=== PATIENT | male | born 1945 | race Caucasian/White ===

== ENCOUNTER 2022-05-22 09:43 | Outpatient (RCR) | payer MEDICARE, SELFPAY | END 2022-11-07 23:59 | disposition home or self-care (01) | PROVIDERS: PCP Family Medicine; Visit Provider Orthopaedic Surgery | DX: Z96.619 Presence of unspecified artificial shoulder joint (principal); Z51.89 Encounter for other specified aftercare | CPT/HCPCS: 97110; 97161 ==

== ENCOUNTER 2023-04-09 22:59 | Emergency (ER) | payer MEDICARE, SELFPAY ==
[2023-04-09] MEDS: lidocaine HCL 2 % JELLY (TOP) STERILE 6 ML UR (23:03)
--- NOTE | 2023-04-09 23:06 | ED.GENADULT ---
HPI - General Adult General Date Seen: 04/09/23 Chief complaint: Urogenital Problems, Male Stated complaint: unable to urinate Time Seen by Provider: 04/09/23 23:05 History of Present Illness HPI narrative: 77-year-old gentleman who is 3 days status post prostate ablation surgery done by Dr. Alejandro at [facility] who presents to the ER today from his home with acute urinary retention and bladder pain. He had placement of a Campbell catheter during his surgery and awoke from anesthesia with the catheter in place. The catheter was draining normally but some bloody urine output for the 1st 3 days. This morning he had his clinic follow-up with a urologist. Initially they irrigated his bladder. He says they ran 18 L of saline through his bladder in order to get the hematuria to clear. (it sounds like he had a 3 way catheter in and they were able to do CBI in the clinic). Subsequently they pulled his catheter. He was able to void spontaneously empty his bladder once in the clinic. That was around noon. Since then he has not been able to urinate. He has had progressively worsening suprapubic pain and fullness and bladder pain. He now has a desperate urge to urinate. No other symptoms. No flank pain. No vomiting. No fever. No trouble bowels. He does not take any blood thinners. He has lot of pain from his over stented bladder but no other symptoms. No lightheadedness. No fever. No flank pain. Related Data Home Medications Medication Instructions Recorded Confirmed albuterol sulfate 90 mcg/actuation 2 puff inhalation Q6H PRN 03/26/22 04/09/23 aerosol inhaler shortness of breath or wheezing ascorbic acid (vitamin C) 500 mg 500 mg PO DAILY 03/26/22 04/09/23 tablet,extended release (C Complex) aspirin 81 mg tablet,delayed 81 mg PO DAILY 03/26/22 04/09/23 release atenolol 50 mg tablet 50 mg PO DAILY 03/26/22 04/09/23 atorvastatin 40 mg tablet 40 mg PO DAILY 03/26/22 04/09/23 calcium carbonate 200 mg calcium 200 mg PO TID 03/26/22 03/25/23 (500 mg) chewable tablet (Tums) celecoxib 100 mg capsule 100 mg PO DAILY 03/26/22 04/09/23 finasteride 5 mg tablet 5 mg PO DAILY 03/26/22 04/09/23 furosemide 20 mg tablet 20 mg PO QAM 03/26/22 04/09/23 melatonin 10 mg tablet 10 mg PO QHS 03/26/22 04/09/23 montelukast 10 mg tablet 10 mg PO QHS 03/26/22 04/09/23 jfegioln-sso-raskn acid 0.4 1 tab PO DAILY 03/26/22 04/09/23 mg-lycopene 300 mcg-lutein 250 mcg tablet (Centrum Silver) omega-3 fatty acids-fish oil 684 1 cap PO DAILY 03/26/22 04/09/23 mg-1,200 mg capsule,delayed release (One-Per-Day [place]-3) omeprazole 40 mg capsule,delayed 40 mg PO BID 03/26/22 04/09/23 release pramipexole 0.5 mg tablet 0.5 - 1 mg PO QHS PRN 03/26/22 04/09/23 pregabalin 150 mg capsule 150 - 300 mg PO QHS 03/26/22 04/09/23 tamsulosin 0.4 mg capsule 0.4 mg PO DAILY 03/26/22 04/09/23 doxazosin 4 mg tablet 4 mg PO DAILY 04/09/23 04/09/23 folic acid 400 mcg tablet 400 mcg PO DAILY 04/09/23 04/09/23 Previous Rx's Medication Instructions Recorded cephalexin 500 mg capsule 500 mg PO BID #14 caps 04/10/23 Allergies Allergy/AdvReac Type Severity Reaction Status Date / Time Sulfa (Sulfonamide Allergy Mild Verified 03/25/23 09:26 Antibiotics) sulfamethoxazole Allergy Mild Nausea Verified 03/25/23 09:26 [From ] trimethoprim [From ] Allergy Mild Nausea Verified 03/25/23 09:26 anti-inflammatories AdvReac upsets Uncoded 03/25/23 09:26 stomach PFSH PFSH Medical History (Updated 04/10/23 @ 01:00 by Jim Mike MD) Right shoulder pain ?M25.511 - Pain in right shoulder (ICD-10) Spinal stenosis ?M48.00 - Spinal stenosis, site unspecified (ICD-10) 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 Alert. Conversant. Arrives by EMS. Uncomfortable but polite. Overall, nontoxic. HENT: Head: Atraumatic. Nose: Nose normal. Mouth/Throat: Oral mucosa is clear and moist. no trismus. Pharynx normal. Tonsils symmetric. No tonsillar enlargement, erythema, or exudate. Eyes: Conjunctivae normal. EOM normal. Pupils equal, round, and reactive to light. No scleral icterus. Neck: Normal range of motion. Neck supple. No tracheal deviation present. Cardiovascular: Normal rate, regular rhythm. No gallop. No friction rub. Pulmonary/Chest: Effort normal. No stridor. No respiratory distress. Abdominal: Soft. Bowel sounds normal. No distension. No mass. Lower abdominal and suprapubic tenderness. No CVA tenderness. No rebound. No guarding. : Normal external the until yeah. After nurses placed a [address] irrigating catheter he had output of several 100 mL of frankly bloody urine and a few small clots. He had tremendous relief of his pain after decompression of his bladder. Musculoskeletal: RUE: Normal range of motion. No tenderness. No deformity LUE: Normal range of motion. No tenderness. No deformity RLE: Normal range of motion. No edema. No tenderness. No deformity LLE: Normal range of motion. No edema. No tenderness. No deformity Neurological: Alert and oriented to person, place, and time. Normal strength. CN II-VII intact. No sensory deficit. GCS eye subscore is 4. GCS verbal subscore is 5. GCS motor subscore is 6. Normal coordination Skin: Skin is warm and dry. No rash noted. No pallor. Normal capillary refill. Psychiatric: Normal mood. Normal affect. Const: Vital Signs, click to edit/add: Vital Signs - 24 hr 04/09/23 23:09 04/10/23 01:20 Temperature 96.5 F L 97.2 F L Pulse Rate [Pulse Oximeter] 65 58 L Respiratory Rate 18 18 Blood Pressure [Ri ght Upper Arm] 181/83 H 147/56 H Pulse Oximetry 96 98 Oxygen Delivery Me thod Room Air Room Air Course Course ED Course: Recheck-sleeping. Catheter draining nicely. He is receiving continuous bladder irrigation with saline. Ongoing up put a very light colored minimally pink urine. Will ask the nurses to discontinue irrigation and will monitor to see if urine becomes more bloody or any clots developed. Vital Signs Vital signs: Initial Vital Signs Temperature 96.5 F L 04/09/23 23:09 Temperature Source Temporal Artery Scan 04/09/23 23:09 Pulse Rate 65 04/09/23 23:09 Respiratory Rate 18 04/09/23 23:09 Blood Pressure 181/83 H 04/09/23 23:09 Blood Pressure Mean 115 H 04/09/23 23:09 Blood Pressure Position Supine 04/09/23 23:09 Pulse Oximetry 96 04/09/23 23:09 Oxygen Delivery Method Room Air 04/09/23 23:09 Vital Signs Temperature 96.5 F L 04/09/23 23:09 Pulse Rate 65 04/09/23 23:09 Respiratory Rate 18 04/09/23 23:09 Blood Pressure 181/83 H 04/09/23 23:09 Pulse Oximetry 96 04/09/23 23:09 Oxygen Delivery Method Room Air 04/09/23 23:09 Temperature 97.2 F L 04/10/23 01:20 Pulse Rate 58 L 04/10/23 01:20 Respiratory Rate 18 04/10/23 01:20 Blood Pressure 147/56 H 04/10/23 01:20 Pulse Oximetry 98 04/10/23 01:20 Oxygen Delivery Method Room Air 04/10/23 01:20 Medications Administered Medications: Discontinued Medications Generic Name Dose Route Start Last Admin Trade Name Freq PRN Reason Stop Dose Admin Cephalexin HCl 500 mg 04/10/23 00:58 04/10/23 01:42 Cephalexin 500 Mg Capsule PO 04/10/23 00:59 500 mg ONCE ONE Administration Lidocaine HCl 6 ml 04/10/23 01:41 04/09/23 23:03 Lidocaine Hcl 2 % Jelly (Top) Sterile UR 6 ml ONCE PRN Administration Medical Decision Making MDM Narrative Medical decision making narrative: Very pleasant 77-year-old gentleman who is 3 days status post prostate procedure done by Dr. Anmol Wood, Urology, throughout with [facility]. He went home from the hospital 3 days ago with a Campbell catheter in place. He had that catheter removed in in the urology clinic this morning. He does report that they did have to irrigate his bladder to get some blood wash out, before they could pull it. He has not been able to have spontaneously void since he was in the clinic and presents from his home, by EMS with tremendous bladder pain. Symptoms related to urinary retention. We placed a triple-lumen catheter here in the ER. We did get large volume of urine out of his bladder with resolution of his pain. Initial urine output was frankly dark maroon and bloody with a few small clots. Blood cleared with irrigation. He is not having any symptoms of blood loss such as dyspnea, weakness, lightheadedness. He is not anticoagulated. Urinalysis was sent by nurses when they placed the catheter. It does show hematuria and pyuria. Unclear if the pyuria is related to his healing prostate surgery or possibly could represent UTI. Will cover him with antibiotics while we await urine culture-1st dose of cephalexin administered here in the ER. Lab Data Labs: Lab Results 04/09/23 Range/Units 23:32 Urine Color Brown A (Yellow) Urine Appearance Cloudy A (Clear) Urine pH 5.5 (5.0-8.5) Ur Specific [place] 1.020 (1.000-1.030) Urine Protein 3+ A (Negative) Urine Glucose (UA) Negative (Negative) Urine Ketones Trace A (Negative) Urine Blood 3+ A (Negative) Urine Nitrite Negative (Negative) Urine Bilirubin 2+ A (Negative) Urine Urobilinogen 1.0 (0.2-1.0) Ur Leukocyte Esterase Trace A (Negative) Urine RBC >100 A (0-2) Urine WBC >100 A (0-5) Urine WBC Clumps Many A (None) Ur Squamous Epith Cells Moderate A (None-Few) Uric Acid Crystals Moderate A (None) Amorphous Sediment Many A (None) Urine Bacteria Many A (None) RBC Casts Many A (None) WBC Casts Many A (None) Discharge Plan Discharge Clinical Impression: Urinary tract infection, Acute urinary retention Patient Disposition: Home, Self-Care Additional Instructions: Please come back to the ER or call your urologist right away if you have any problems especially if your Campbell catheter becomes plugged, or if you have returning pain in your bladder, abdomen, or in your kidneys. Please follow-up with your urologist within 1-2 days for a recheck. Call his office this morning to arrange an ER follow-up appointment. Your urine sample shows possible signs of an infection. We are going to start you on antibiotic. You got your 1st dose here tonight. Please fill the prescription at your pharmacy today and continue the antibiotic for 7 days or until your urologist tells you to stop taking the medication. Prescriptions: New cephalexin 500 mg capsule 500 mg PO BID Qty: 14 0RF No Action folic acid 400 mcg tablet 400 mcg PO DAILY doxazosin 4 mg tablet 4 mg PO DAILY albuterol sulfate 90 mcg/actuation HFA aerosol inhaler 2 puff INHALATION Q6H PRN (Reason: shortness of breath or wheezing) aspirin 81 mg tablet,delayed release (DR/EC) 81 mg PO DAILY Patient Comments: 1 tablet once a day atenolol 50 mg tablet 50 mg PO DAILY atorvastatin 40 mg tablet 40 mg PO DAILY celecoxib 100 mg capsule 100 mg PO DAILY ascorbic acid (vitamin C) [C Complex] 500 mg tablet extended release 500 mg PO DAILY calcium carbonate [Tums] 200 mg calcium (500 mg) tablet,chewable 200 mg PO TID finasteride 5 mg tablet 5 mg PO DAILY furosemide 20 mg tablet 20 mg PO QAM melatonin 10 mg tablet 10 mg PO QHS montelukast 10 mg tablet 10 mg PO QHS Centrum Silver 0.4 mg-300 mcg- 250 mcg tablet 1 tab PO DAILY One-Per-Day [place]-3 684-1,200 mg capsule,delayed release(DR/EC) 1 cap PO DAILY omeprazole 40 mg capsule,delayed release(DR/EC) 40 mg PO BID pramipexole 0.5 mg tablet 0.5 - 1 mg PO QHS PRN pregabalin 150 mg capsule 150 - 300 mg PO QHS tamsulosin 0.4 mg capsule 0.4 mg PO DAILY Follow Up/Referrals: Srinivasan Loyd MD [Primary Care Provider] - Stand Alone Forms: [facility] Info Instructions
[2023-04-09 23:09] VITALS: BP 181/83; PULSE 65; RESP 18; TEMP 35.8; O2SAT 96; BMI 29.5
--- NOTE | 2023-04-09 23:48 | ED.NURSE ---
Patient had CBI catheter placed without difficulty. 800 cc brown urine drained. Patient noted relief of symptoms. Urine collected and sent to lab. No clots present.
[2023-04-09 23:55] LABS: Appearance Urine Cloudy (Clear); Bilirubin Urine 2+ (Negative); Blood Urine 3+ (Negative); Color Urine Brown (Yellow); Glucose Urine Negative (Negative); Ketones Urine Trace (Negative); Leukocyte Esterase Urine Trace (Negative); Nitrite Urine Negative (Negative); Protein Urine 3+ (Negative); pH Urine 5.5 (5.0-8.5)
[2023-04-10 00:05] LABS: Amorphous Sediment Urine Many; Bacteria Urine Many; RBC Urine >100 (0-2); Squamous Epithelial Cell Urine Moderate (None-Few); WBC Clumps Urine Many; WBC Urine >100 (0-5)
[2023-04-10 00:06] LABS: Red Blood Cell Casts Urine Many; Uric Acid Crystals Urine Moderate; White Blood Cell Casts Urine Many
[2023-04-10 01:20] VITALS: BP 147/56; PULSE 58; RESP 18; TEMP 36.2; O2SAT 98
[2023-04-10] MEDS: cephALEXin 500 MG CAPSULE PO (01:42)
--- NOTE | 2023-04-10 01:43 | PC.NURSE ---
education provided to patient about home catheter care. patient stated understanding to proper care when emptying catheter. also stated understanding to how to switch between leg bag and bed bag.
--- NOTE | 2023-04-10 01:57 | PC.NURSE ---
DC instructions gone over with patient and he has no further questions. Catheter bag draining clear pink urine, given bed bag and leg bag along with extra alcohol swabs. patient ambulatory w/o pain. son here to give patient a ride.
== END 2023-04-10 01:57 | disposition home or self-care (01) ==
PROVIDERS: Emergency Provider Emergency Medicine; PCP Family Medicine
DX: N39.0 Urinary tract infection, site not specified (principal); R33.9 Retention of urine, unspecified
CPT/HCPCS: 51702; 81001; 87086; 99283; A9270

== ENCOUNTER 2023-07-28 15:00 | Emergency (ER) | payer MEDICARE, SELFPAY ==
[2023-07-28 15:12] VITALS: BP 134/82; PULSE 120; RESP 18; TEMP 38.8; O2SAT 96; BMI 29.6
[2023-07-28 15:49] LABS: Appearance Urine Clear (Clear); Bilirubin Urine Negative (Negative); Blood Urine Negative (Negative); Color Urine Dark yellow (Yellow); Glucose Urine Negative (Negative); Ketones Urine Negative (Negative); Leukocyte Esterase Urine Negative (Negative); Nitrite Urine Negative (Negative); Protein Urine Negative (Negative); Specific Gravity Urine 1.015 (1.000-1.030); pH Urine 7.5 (5.0-8.5)
[2023-07-28 16:02] LABS: RBC Urine 0-2 (0-2); WBC Urine 0-2 (0-5)
--- NOTE | 2023-07-28 16:18 | ED_ITS ---
HPI - General Adult General Chief complaint: Urogenital Problems, Male Stated complaint: lymes? Everything hurts, peeing alot, chills Time Seen by Provider: 07/28/23 15:52 History of Present Illness HPI narrative: 78-year-old male comes in reporting rather sudden onset of chills, fever, generalized malaise and aches and pains that began this morning. He arrives here with tachycardia and a temperature 101.9? F. He states he does have frequent urinating and did have a prostate procedure several months ago. He does not report any cough or shortness of breath. He states that he is outside all the time and did have Lyme disease a couple years ago and states that these symptoms feel similar. He does not know of any tick bite recently or other source that could be explaining his symptoms. Related Data Home Medications Medication Instructions Recorded Confirmed albuterol sulfate 90 mcg/actuation 2 puff inhalation Q6H PRN 03/26/22 07/28/23 aerosol inhaler shortness of breath or wheezing ascorbic acid (vitamin C) 500 mg 500 mg PO DAILY 03/26/22 07/28/23 tablet,extended release (C Complex) aspirin 81 mg tablet,delayed 81 mg PO DAILY 03/26/22 07/28/23 release atorvastatin 40 mg tablet 40 mg PO DAILY 03/26/22 07/28/23 calcium carbonate (Tums) 200 mg PO TID 03/26/22 07/28/23 furosemide 20 mg tablet 20 mg PO QAM 03/26/22 07/28/23 melatonin 10 mg tablet 10 mg PO QHS 03/26/22 07/28/23 montelukast 10 mg tablet 10 mg PO QHS 03/26/22 07/28/23 orczknwg-wut-jmyuq acid 0.4 1 tab PO DAILY 03/26/22 07/28/23 mg-lycopene 300 mcg-lutein 250 mcg tablet (Centrum Silver) omega-3 fatty acids-fish oil 684 1 cap PO DAILY 03/26/22 07/28/23 mg-1,200 mg capsule,delayed release (One-Per-Day [place]-3) omeprazole 40 mg capsule,delayed 40 mg PO BID 03/26/22 07/28/23 release pramipexole 0.5 mg tablet 0.5 - 1 mg PO QHS PRN 03/26/22 07/28/23 pregabalin 150 mg capsule 150 - 300 mg PO QHS 03/26/22 07/28/23 doxazosin 4 mg tablet 4 mg PO DAILY 04/09/23 07/28/23 folic acid 400 mcg tablet 400 mcg PO DAILY 04/09/23 07/28/23 nifedipine 30 mg tablet,extended 30 mg PO DAILY 07/28/23 07/28/23 release 24 hr oxycodone 10 mg tablet mg PO 07/28/23 Previous Rx's Medication Instructions Recorded doxycycline hyclate 100 mg capsule 100 mg PO BID 10 days #20 caps 07/28/23 Allergies Allergy/AdvReac Type Severity Reaction Status Date / Time Sulfa (Sulfonamide Allergy Mild Verified 07/28/23 15:24 Antibiotics) sulfamethoxazole Allergy Mild Nausea Verified 07/28/23 15:24 [From ] trimethoprim [From ] Allergy Mild Nausea Verified 07/28/23 15:24 anti-inflammatories AdvReac upsets Uncoded 03/25/23 09:26 stomach Review of Systems Status of ROS: Reports: 10 or more systems reviewed and unremarkable except as noted in History and below Narrative: Constitutional: No weight gain or loss. Fevers, rigors, and generalized aches and pains. Eyes: No discharge. No vision changes. HENT: No congestion, no sore throat, no ear pain. Cardiovascular: No chest pain, no palpitations. Respiratory: No shortness of breath, no wheezes, no cough. Gastrointestinal: No abdominal pain, no vomiting, no diarrhea. Genitourinary: No hematuria. Increased frequency of urine. Musculoskeletal: Normal range of motion. Skin: No rashes, no pruritis. Neurological: No dizziness, weakness, sensory change, speech change. Endo/Heme/Allergies: No bruising or bleeding. No polydipsia. Pysch: no suicidality, no anxiety, no insomnia. All other systems reviewed and are negative. 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 HEENT: Normocephalic, atraumatic. Neck: Normal range of motion. Nontender. Supple. Heart: Regular. No murmurs. Tachycardia. Intact distal pulses. Lungs: Clear to auscultation. No chest discomfort. No wheezes, rhonchi, or rales. Abdomen: Normal bowel sounds. Nontender. No rebound tenderness. Genitalia: Deferred. Back: No midline tenderness. Normal range of motion. Extremities: Normal range of motion. No injury. Skin: Intact. No rash. Warm. No erythema or pallor. Neurologic: No altered sensation. No weakness. Alert and oriented. Psychiatric: No suicidality. No anxiety or depression. No insomnia. Nursing notes and vitals signs are reviewed. Const: Vital Signs, click to edit/add: Vital Signs - 24 hr 07/28/23 15:12 Temperature 101.9 F H Pulse Rate [Pulse Oximeter] 120 H Respiratory Rate 18 Blood Pressure [Ri ght Upper Arm] 134/82 Pulse Oximetry 96 Oxygen Delivery Me thod Room Air Course Vital Signs Vital signs: Initial Vital Signs Temperature 101.9 F H 07/28/23 15:12 Temperature Source Temporal Artery Scan 07/28/23 15:12 Pulse Rate 120 H 07/28/23 15:12 Respiratory Rate 18 07/28/23 15:12 Blood Pressure 134/82 07/28/23 15:12 Blood Pressure Mean 99 07/28/23 15:12 Blood Pressure Position Sitting 07/28/23 15:12 Pulse Oximetry 96 07/28/23 15:12 Oxygen Delivery Method Room Air 07/28/23 15:12 Vital Signs Temperature 101.9 F H 07/28/23 15:12 Pulse Rate 120 H 07/28/23 15:12 Respiratory Rate 18 07/28/23 15:12 Blood Pressure 134/82 07/28/23 15:12 Pulse Oximetry 96 07/28/23 15:12 Oxygen Delivery Method Room Air 07/28/23 15:12 Temperature 101.9 F H 07/28/23 15:12 Pulse Rate 120 H 07/28/23 15:12 Respiratory Rate 18 07/28/23 15:12 Blood Pressure 134/82 07/28/23 15:12 Pulse Oximetry 96 07/28/23 15:12 Oxygen Delivery Method Room Air 07/28/23 15:12 Medical Decision Making MDM Narrative Medical decision making narrative: This patient comes in reporting generalized malaise and arrives with fever and tachycardia. He is tripping triggers that mandate a sepsis workup. An IV was established where he did receive a L of normal saline intravenously. Lactate returns in normal range at 1.7. The patient has had blood cultures drawn and soon after that received a g of Rocephin. Nasal pharyngeal swab returns negative for COVID, influenza, and RSV. Urinalysis is also negative for infection. The patient does not have any abnormality on exam other than vital signs as just described. He states that he spends a lot of time outside and is wondering about a tick borne disease such as Lyme disease but does not report any finding of a tick on himself blood returns with a somewhat elevated white blood cell count at around 13,000. His procalcitonin level also returns elevated at 0.97. This patient states that he is feeling better. His vital signs have normalized. He did receive an IV dose of Toradol an oral dose of acetaminophen. He is okay to be discharged home. I did provide prescription for doxycycline. Lab Data Labs: Lab Results 07/28/23 07/28/23 07/28/23 Range/Units 15:30 15:35 16:36 WBC 13.59 H (4.50-11.00) K/uL RBC 5.50 (4.30-5.90) m/uL Hgb 16.2 (13.5-17.5) gm/dL Hct 48.4 (37.0-53.0) % MCV 88 (80-100) fL MCH 30 (26-34) pg MCHC 34 (32-36) gm/dL RDW Coeff of Nayeli 13.1 (11.5-15.5) % Plt Count 146 (140-440) K/uL Neut % (Auto) 91.2 H (42.0-72.0) % Lymph % (Auto) 4.0 L (20-44) % [place] % (Auto) 4.4 (0.0-11.0) % Eos % (Auto) 0.1 (0.0-7.0) % Baso % (Auto) 0.1 (0.0-3.0) % Neut # (Auto) 12.40 H (1.7-7.0) K/uL Lymph # (Auto) 0.50 L (0.90-2.90) K/uL [place] # (Auto) 0.60 (0.00-0.90) K/UL Eos # (Auto) 0.00 (0.00-0.50) K/uL Baso # (Auto) 0.00 (0.00-0.30) K/uL Abs Immat Gran (auto) 0.00 (0.00-0.30) K/uL Imm/Tot Granulo (auto) 0.2 % Sodium 136 (135-149) mmol/L Potassium 4.1 (3.6-5.1) mmol/L Chloride 101 (96-114) mmol/L Carbon Dioxide 27 (20-32) mmol/L Anion Gap 8 (7-15) mEq/L BUN 21 (7-30) mg/dL Creatinine 0.8 (0.5-1.5) mg/dL Estimated Creat Clear 79.20 Estimated GFR 92 ml/min Glucose 135 H (60-115) mg/dL Lactate 1.7 (0.5-1.9) mmol/L Calcium 9.4 (8.4-10.6) mg/dL Procalcitonin 0.97 H (<0.50) ng/mL Urine Color Dark yellow (Yellow) Urine Appearance Clear (Clear) Urine pH 7.5 (5.0-8.5) Ur Specific [place] 1.015 (1.000-1.030) Urine Protein Negative (Negative) Urine Glucose (UA) Negative (Negative) Urine Ketones Negative (Negative) Urine Blood Negative (Negative) Urine Nitrite Negative (Negative) Urine Bilirubin Negative (Negative) Urine Urobilinogen 1.0 (0.2-1.0) Ur Leukocyte Esterase Negative (Negative) Urine RBC 0-2 (0-2) Urine WBC 0-2 (0-5) Ur Squamous Epith Cells None (None-Few) Urine Bacteria None (None) SARS-CoV-2 (PCR) Negative SARS-CoV-2 (Negative) Influenza Type A (PCR) Negative PCR FLU A (Negative) Influenza Type B (PCR) Negative PCR FLU B (Negative) RSV (PCR) Negative PCR RSV (Negative) Discharge Plan Discharge Clinical Impression: Fever Patient Disposition: Home w/ Parent or Adult Condition: Stable Additional Instructions: Take medication as prescribed. Use [id number] medicines also as needed. Follow up with MD or return if worsening. Prescriptions: New doxycycline hyclate 100 mg capsule 100 mg PO BID 10 Days Qty: 20 0RF No Action folic acid 400 mcg tablet 400 mcg PO DAILY doxazosin 4 mg tablet 4 mg PO DAILY nifedipine 30 mg tablet extended release 24hr 30 mg PO DAILY oxycodone 10 mg tablet PO albuterol sulfate 90 mcg/actuation HFA aerosol inhaler 2 puff INHALATION Q6H PRN (Reason: shortness of breath or wheezing) aspirin 81 mg tablet,delayed release (DR/EC) 81 mg PO DAILY Patient Comments: 1 tablet once a day atorvastatin 40 mg tablet 40 mg PO DAILY ascorbic acid (vitamin C) [C Complex] 500 mg tablet extended release 500 mg PO DAILY calcium carbonate [Tums] 200 mg calcium (500 mg) tablet,chewable 200 mg PO TID furosemide 20 mg tablet 20 mg PO QAM melatonin 10 mg tablet 10 mg PO QHS montelukast 10 mg tablet 10 mg PO QHS Centrum Silver 0.4 mg-300 mcg- 250 mcg tablet 1 tab PO DAILY One-Per-Day [place]-3 684-1,200 mg capsule,delayed release(DR/EC) 1 cap PO DAILY omeprazole 40 mg capsule,delayed release(DR/EC) 40 mg PO BID pramipexole 0.5 mg tablet 0.5 - 1 mg PO QHS PRN pregabalin 150 mg capsule 150 - 300 mg PO QHS Follow Up/Referrals: Srinivasan Loyd MD [Referring] - Stand Alone Forms: [facility] Info Instructions
[2023-07-28 16:28] LABS: PCR FLU A Negative PCR FLU A (Negative); PCR FLU B Negative PCR FLU B (Negative); PCR RSV Negative PCR RSV (Negative); SARS PCR* Negative SARS-CoV-2 (Negative)
[2023-07-28] MEDS: 0.9 % SODIUM CHLORIDE 1000 ml 1,000 ML IV (16:30)
[2023-07-28 16:39] LABS: Lactate* 1.7 mmol/L (0.5-1.9)
[2023-07-28] MEDS: cefTRIAXone 1 GM in 0.9 % SODIUM CHLORIDE Mini-bag 100 ML IVPB (16:40)
[2023-07-28] MEDS: KETOROLAC 30 MG/ML inj IVP (16:40)
[2023-07-28] MEDS: ACETAMINOPHEN 500 MG TABLET 1000 MG PO (16:40)
[2023-07-28 16:43] LABS: Basophils Percent Auto 0.1 % (0.0-3.0); Eosinophils Percent Auto 0.1 % (0.0-7.0); Hematocrit 48.4 % (37.0-53.0); Hemoglobin* 16.2 gm/dL (13.5-17.5); Immature Granulocytes Pct Auto 0.2 %; Mean Corpuscular HGB Conc 34 gm/dL (32-36); Mean Corpuscular Hemoglobin 30 pg (26-34); Mean Corpuscular Volume 88 fL (80-100); Monocytes Percent Auto 4.4 % (0.0-11.0); Neutrophils Percent Auto 91.2 % (42.0-72.0); Platelet Count* 146 K/uL (140-440); RDW Coefficient of Variation % 13.1 % (11.5-15.5); White Blood Count* 13.59 K/uL (4.50-11.00)
--- OUTSIDE RECORDS SUMMARY | 2023-07-28 16:47 | XMS_ITS | Data Portability ---
Author Name Unknown Address [address] [place] [address] Phone [phone] Organization [facility] Address [address] [place] [address] Care Team Providers Care Payment Rep Name Role Phone ALBA LEVIN Primary Care Provider Assessment Encounter Date Assessment Date Assessment LastModified by Organization Details LastModified Time 04/05/2020 04/05/2020 74 Y/O MALE HX BPH WITH SX.S. OVERALL DOING ON MEDICAL THERAPY. ON FLOMAX, FINASTERIDE. PSA STABLE 0.52. OVERALL DOING WELL.U/A NEG, PVR 0CC. PLAN RTC 6-12 MO. PVR. U/A. Not available 04/05/2020 11:36:17 07/04/2021 07/04/2021 76 Y/O MALE, HX BPH, INCOMPLETE BLADDER EMPTYING . PVR 90CC, U/A NEG. ON MEDICAL THERAPY AND DOING WELL., ORDERED REVIEWED, INTERPRETED PVR,U/A PLAN CONTINUE MEDICAL THERAPY WITH FLOMAX,AND FINASTERIDE. RTC 1 YR Not available 07/04/2021 14:41:28 11/29/2022 11/29/2022 77 y/o male, HX BPH , OVERALL DOING WELL ON MEDICAL THERAPY . PVR 49CC, U/A NEG. STILL COMPLAINS OF SLOW FLOW AND DRIBBLING. ON FLOMAX AND FINASTERIDE ORDERED, REVIEWED U/A, PVR DISCUSSED OTHER OPTIONSLASER, AQUA RX. PLAN STOP FLOMAX AND START DOXASOSIN, CONT. FINASTERIDE.RT C 3 MO. Not available 11/29/2022 12:01:57 01/22/2023 01/22/2023 77 Y/O MALE, HX BPH, LUTS, MARGINAL IMPROVEMENT ON MEDICAL TREATMENT. HAS BEEN ON FINASTERIDE , DOXASOSIN. PVR 40CC. U/A NEG.PSA 0.52. CYSTO BILOBAR PROSTATE, HIGH BLADDER NECK TRUS 48G. PLAN WILL SCHEDULE AQUA BALATION OF THE PROSTATE. PROCEDURE EXPLAINED IN DETAIL. Not available 01/22/2023 14:29:02 05/16/2023 05/16/2023 77 Y/O MALE, HX BPH, S/P AQUA THERAPY OF THE PROSTATE . DOING WELL. GOOD FLOW, DRY, PVR 8CC. SATISFIED. PLAN RTC 2 MO PVR, U/A. Not available 05/16/2023 16:53:25 Plan of Treatment Reminders Order Date Submit Date Provider Last Modified By Organization Details Last Modified Time Details Appointments None recorded. Lab urinalysi s, dipstick 2023 024 [email or web address] [facility], [address], [place], [address], 4 12:18:46 urinalysi s, dipstick 2023 024 deni [facility], [address], [place], [address], 4 10:57:04 culture, urine [address] [facility], [address], [place], [address], 4 10:42:42 urinalysi s, dipstick 2022 023 [facility], [address], [place], [address], 3 11:42:46 urinalysi s, dipstick 2021 022 [email or web address] Not available 2 14:26:18 urinalysi s, dipstick 2019 020 Not available 0 11:19:08 PSA, serum or plasma 2019 ssamb Not available 0 11:31:53 Referral None recorded. Procedures None recorded. Surgeries None recorded. Imaging None recorded. Medication Orders doxazosin 4 mg tablet 2022 023 [facility] [address] [place] [address], [address], 3 11:32:10 doxazosin 4 mg tablet 2022 023 [facility], [address] [place] [address], [address], 3 12:00:15 finasteri de 5 mg tablet 2021 022 [facility], [address] [place] [address], [address], 2 14:28:56 tamsulosi n 0.4 mg capsule 2021 022 [facility], [address] [place] [address], [address], 2 14:28:56 tamsulosi n 0.4 mg capsule 2019 020 [facility], [address] [place] [address], [address], 0 11:19:10 finasteri de 5 mg tablet 2019 020 INTERFACE [facility], [address] [place] [address], [address], 0 11:19:11 finasteri de 5 mg tablet 2019 020 INTERFACE [id number], [address] [place], [id number], 0 11:19:37 Patient TargetsNo targets recorded. Patient Instructions Encounter Date Encounter Id Patient Instructions Last Modified By Organization Details Last Modified Time 04/05/2020 [id number] BPH. Not available 04/05 11:36:39 Reason for Referral None Reported. Results Created Date Observation Date Name Description Value Unit Range Abnormal Flag LastModifiedBy Organization Detail LastModifiedTime 04/05/2020 PSA, serum or plasm a PSA, Total 0.52 Not Available [facility] [address], [place], [address], 04/05/2020 11:31:38 04/05/2020 urina lysis , dipst ick Color-Status Yellow Not Available [facility] [address], [place], [address], 04/05/2020 11:17:30 04/05/2020 urina lysis , dipst ick Clarity-Stat us Clear Not Available [facility] [address], [place], [address], 04/05/2020 11:17:30 04/05/2020 urina lysis , dipst ick Ketones-Stat us 5 Not Available [facility] [address], [place], [address], 04/05/2020 11:17:30 04/05/2020 urina lysis , dipst ick Blood-Status Trace Not Available [facility] [address], [place], [address], 04/05/2020 11:17:30 07/05/19 22 07/04/2021 urina lysis , dipst ick Color-Status Yellow Not Available [facility] [address], [place], [address], 07/04/2021 14:21:58 07/05/19 22 07/04/2021 urina lysis , dipst ick Clarity-Stat us Clear Not Available [facility] [address], [place], [address], 07/04/2021 14:21:58 07/05/19 22 07/04/2021 urina lysis , dipst ick Glucose-Stat us Negati ve Not Available [facility] [address], [place], [address], 07/04/2021 14:21:58 07/05/19 22 07/04/2021 urina lysis , dipst ick Bilirubin-St atus Negati ve Not Available [facility] [address], [place], [address], 07/04/2021 14:21:58 07/05/19 22 07/04/2021 urina lysis , dipst ick Ketones-Stat us Negati ve Not Available [facility] [address], [place], [address], 07/04/2021 14:21:58 07/05/19 22 07/04/2021 urina lysis , dipst ick Sp Newcastle-Stat us 1.010 Not Available [facility] [address], [place], [address], 07/04/2021 14:21:58 07/05/19 22 07/04/2021 urina lysis , dipst ick pH-Status 7.0 Not Available [facility] [address], [place], [address], 07/04/2021 14:21:58 07/05/19 22 07/04/2021 urina lysis , dipst ick Urobilinogen -Status 0.2 Not Available [facility] [address], [place], [address], 07/04/2021 14:21:58 07/05/19 22 07/04/2021 urina lysis , dipst ick Nitrates-Sta tus negati ve Not Available [facility] [address], [place], [address], 07/04/2021 14:21:58 07/05/19 22 07/04/2021 urina lysis , dipst ick Blood-Status Negati ve Not Available [facility] [address], [place], [address], 07/04/2021 14:21:58 07/05/19 22 07/04/2021 urina lysis , dipst ick Leuko-Status Negati ve Not Available [facility] [address], [place], [address], 07/04/2021 14:21:58 07/05/19 22 07/04/2021 urina lysis , dipst ick Specimen Type Voided Not Available [facility] [address], [place], [address], 07/04/2021 14:21:58 11/30/19 23 11/29/2022 urina lysis , dipst ick Color-Status Yellow Not Available [facility] [address], [place], [address], 11/29/2022 11:42:08 11/30/19 23 11/29/2022 urina lysis , dipst ick Clarity-Stat us Clear Not Available [facility] [address], [place], [address], 11/29/2022 11:42:08 11/30/19 23 11/29/2022 urina lysis , dipst ick Glucose-Stat us Negati ve Not Available [facility] [address], [place], [address], 11/29/2022 11:42:08 11/30/19 23 11/29/2022 urina lysis , dipst ick Bilirubin-St atus Negati ve Not Available [facility] [address], [place], [address], 11/29/2022 11:42:08 11/30/19 23 11/29/2022 urina lysis , dipst ick Ketones-Stat us Negati ve Not Available [facility] [address], [place], [address], 11/29/2022 11:42:08 11/30/19 23 11/29/2022 urina lysis , dipst ick Sp Newcastle-Stat us 1.020 Not Available [facility] [address], [place], [address], 11/29/2022 11:42:08 11/30/19 23 11/29/2022 urina lysis , dipst ick pH-Status 5.5 Not Available [facility] [address], [place], [address], 11/29/2022 11:42:08 11/30/19 23 11/29/2022 urina lysis , dipst ick Urobilinogen -Status 1.0 Not Available [facility] [address], [place], [address], 11/29/2022 11:42:08 11/30/19 23 11/29/2022 urina lysis , dipst ick Nitrates-Sta tus negati ve Not Available [facility] [address], [place], [address], 11/29/2022 11:42:08 11/30/19 23 11/29/2022 urina lysis , dipst ick Blood-Status Negati ve Not Available [facility] [address], [place], [address], 11/29/2022 11:42:08 11/30/19 23 11/29/2022 urina lysis , dipst ick Leuko-Status Negati ve Not Available [facility] [address], [place], [address], 11/29/2022 11:42:08 11/30/19 23 11/29/2022 urina lysis , dipst ick Specimen Type Voided Not Available [facility] [address], [place], [address], 11/29/2022 11:42:08 05/13/19 24 05/13/2023 URINE CULTU RE final report microb iology result s Not Available [facility] [address], [place], [address], 05/15/2023 10:42:42 05/13/19 24 05/13/2023 urina lysis , dipst ick Nitrates-Sta tus negati ve Not Available [facility] [address], [place], [address], 05/13/2023 10:54:58 05/13/19 24 05/13/2023 urina lysis , dipst ick Blood-Status Trace Not Available [facility] [address], [place], [address], 05/13/2023 10:54:58 05/13/19 24 05/13/2023 urina lysis , dipst ick Leuko-Status Modera te Not Available [facility] [address], [place], [address], 05/13/2023 10:54:58 05/13/19 24 05/13/2023 urina lysis , dipst ick Specimen Type Voided Not Available [facility] [address], [place], [address], 05/13/2023 10:54:58 05/16/19 24 05/16/2023 urina lysis , dipst ick Color-Status Yellow Not Available [facility] [address], [place], [address], 05/16/2023 12:17:28 05/16/19 24 05/16/2023 urina lysis , dipst ick Clarity-Stat us Clear Not Available [facility] [address], [place], [address], 05/16/2023 12:17:28 05/16/19 24 05/16/2023 urina lysis , dipst ick Nitrates-Sta tus negati ve Not Available [facility] [address], [place], [address], 05/16/2023 12:17:28 05/16/19 24 05/16/2023 urina lysis , dipst ick Blood-Status Trace Not Available [facility] [address], [place], [address], 05/16/2023 12:17:28 05/16/19 24 05/16/2023 urina lysis , dipst ick Leuko-Status Small Not Available [facility] [address], [place], [address], 05/16/2023 12:17:28 05/16/19 24 05/16/2023 urina lysis , dipst ick Specimen Type Voided Not Available [facility] [address], [place], [address], 05/16/2023 12:17:28 05/16/19 24 05/16/2023 urina lysis , dipst ick Performed by [facility] Not Available [facility] [address], [place], [address], 05/16/2023 12:17:28 04/07/20 20 04/05/2020 bladd er scan (PROC ) No observ ation record ed. BARCODE Not Available 04/07/2020 11:32:44 07/06/19 22 07/04/2021 bladd er scan (PROC ) No observ ation record ed. BARCODE Not Available 07/05/2021 11:22:52 Result Notes None recorded. Problems Name Status Onset Date Resolution Date Notes Provider Name and Address Organization Details Recorded Time Benign prostatic hyperplasia with outflow obstruction Active 11/30/19 Sukumar Alejandro MD [address] [place] [address],[address], [place], [address], [facility] 11/29/2022 11:42:45 Problem Notes None recorded. Procedures Surgical History Date Name Laterality Status Provider Name and Address Organization Details Recorded Time 05/16/19 Bladder Scan completed Lauralisa roper, [facility] 05/16/2023 12:17:22 05/13/19 24 Urine Culture completed Chelsey roper, [facility] 05/13/2023 10:54:28 05/13/19 24 Urinalysis completed Chelsey roper, [facility] 05/13/2023 10:54:45 05/13/19 24 Bladder Scan completed Chelsey roper, [facility] 05/13/2023 10:54:54 04/15/20 23 Fill and Pull/Voiding Trial/TOV completed Chelsey roper, [facility] 04/15/2023 11:41:50 04/09/20 23 Bladder Irrigation completed Josiah roper, [facility] 04/10/2023 11:08:06 04/09/20 23 Fill and Pull/Voiding Trial/TOV completed Josiah roper, [facility] 04/10/2023 11:08:19 01/23/20 23 TRUS- Volume size only completed Sukumar Alejandro MD [address] [place] [address],[address], [place], [address], [facility] 01/22/2023 14:25:57 01/23/20 23 CystoscopyMale completed Sukumar Alejandro MD [address] [place] [address],[address], [place], [address], [facility] 01/22/2023 14:24:33 11/30/19 23 Bladder Scan completed Sukumar Alejandro MD [address] [place] [address],[address], [place], [address], [facility] 11/29/2022 11:42:04 07/05/19 22 Bladder Scan completed Debbie Sawyer [facility] 07/04/2021 14:26:27 04/05/20 20 Bladder Scan completed Sukumar Alejandro MD [address] [place] [address],[address], [place], [address], [facility] 04/05/2020 11:17:03 04/05/20 20 Blood Draw/SALES ASSISTANT ENTERTAINMENT AND MEDIA/PSA RESULTS completed Sukumar Alejandro MD [address] [place] [address],[facility] [address], [place], [address], [facility] 04/05/2020 11:17:25 Imaging Results Imaging Date Name Status LastModified by Organiz ation Details LastModified Time 04/05/2020 bladder scan (PROC) completed BARCODE Information not available 04/07/2020 11:32:44 07/04/2021 bladder scan (PROC) completed BARCODE Information not available 07/05/2021 11:22:52 Procedure Notes None recorded. Medical Equipment None Reported. Allergies Allergen ID Allergen Name Allergen Category Reaction Reaction Severity Criticality Documentation Date Start Date Code Code System Note Provider Name and Address Organization Details Recorded Time 317256 sulfameth oxazole / trimethop rim medicatio n Not available Not available Not available 10/07/20192017 23077 RxNorm React ion: Skin React ion Not Available [facility] Medications Name Sig Start Date Stop Date Status Note LastModified by Organization Details LastModified Time atorvastati n 40 mg tablet active Not Available Not Available Not Available betamethaso ne valerate 0.1 % topical ointment APPLY TOPICALLY TO THE AFFECTED AREA TWICE DAILY active Not Available Not Available No t Available acetaminoph en 325 mg tablet active Not Available Not Available Not Available gabapentin 600 mg tablet 11/29 completed Not Available Not Available Not Available doxycycline hyclate 100 mg capsule TK 1 C PO BID 11/29 completed Not Available Not Available Not Available azithromyci n 250 mg tablet TK 2 TS PO FOR 1 DAY THEN TK 1 T PO D UNTIL GONE 11/29 completed Not Available Not Available Not Available hydrocodone 5 mg-acetamin ophen 325 mg tablet TAKE ONE TO TWO TABLETS BY MOUTH EVERY 4 TO 6 HOURS NEEDED FORPAIN active Not Available Not Available No t Available sucralfate 1 gram tablet active Not Available Not Available Not Available omeprazole 40 mg capsule,del ayed release active Not Available Not Available Not Available aspirin 81 mg tablet,mohamud yed release active Not Available Not Available Not Available pramipexole 0.5 mg tablet active Not Available Not Available Not Available oxycodone-a cetaminophe n 5 mg-325 mg tablet 11/29 completed Not Available Not Available Not Available tamsulosin 0.4 mg capsule TAKE 1 CAPSULE DAILY DIRECTED active Not Available Not Available No t Available benzonatate 100 mg capsule TK 1 C PO TID PRF COUGH active Not Available Not Available No t Available cephalexin 500 mg capsule TAKE 1 CAPSULE BY MOUTH THREE TIMES DAILY FOR 10 DAYS 05/16 completed Not Available Not Available Not Available misoprostol 200 mcg tablet active Not Available Not Available Not Available losartan 25 mg tablet active Not Available Not Available No t Available doxazosin 4 mg tablet TAKE 1 TABLET BY MOUTH EVERY DAY active Not Available Not Available No t Available montelukast 10 mg tablet active Not Available Not Available Not Available mupirocin 2 % topical ointment APPLY TOPICALLY TO THE AFFECTED AREA THREE TIMES DAILY FOR 7 DAYS active Not Available Not Available No t Available furosemide 20 mg tablet active Not Available Not Available Not Available mirtazapine 15 mg tablet active Not Available Not Available Not Available azelastine 137 mcg (0.1 %) nasal spray aerosol active Not Available Not Available Not Available levofloxaci n 500 mg tablet TK 1 T PO QD 05/16 completed Not Available Not Available Not Available levofloxaci n 750 mg tablet 11/29 completed Not Available Not Available Not Available zolpidem 10 mg tablet TK 1 T PO HS 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 active Not Available Not Available No t Available albuterol sulfate HFA 90 mcg/actuati on aerosol inhaler INL 1 TO 2 PFS PO Q 6 H PRN active Not Available Not Available No t Available celecoxib 100 mg capsule active Not Available Not Available Not Available fluticasone propionate 50 mcg/actuati on nasal spray,suspe nsion SHAKE LQ AND U 1 TO 2 SPRAYS IEN QD active Not Available Not Available No t Available doxycycline hyclate 100 mg tablet TAKE 1 TABLET BY MOUTH TWICE DAILY UNTIL GONE 05/16 completed Not Available Not Available Not Available atenolol 50 mg tablet take 1/2 pill 2023 active Not Available Not Available Not Avai lable finasteride 5 mg tablet TAKE 1 TABLET DAILY active Not Available Not Available No t Available amoxicillin 875 mg-potassiu m clavulanate 125 mg tablet TAKE 1 TABLET BY MOUTH TWICE DAILY WITH MEALS FOR 10 DAYS 11/29 completed Not Available Not Available Not Available oxycodone 5 mg tablet active Not Available Not Available No t Available eszopiclone 2 mg tablet active Not Available Not Available Not Available pregabalin 150 mg capsule TAKE 1 CAPSULE BY MOUTH AFTER SUPPER AND THEN 2 CAPSULES BEFORE BEDTIME TO TREAT RESTLESS LEGS active Not Available Not Available No t Available peg 3350-electr olytes 236 gram-22.74 gram-6.74 gram-5.86 gram solution active Not Available Not Available Not Available levocetiriz ine 5 mg tablet 05/16 completed Not Available Not Available Not Available oxycodone 10 mg tablet TAKE 1 TABLET BY MOUTH AT BEDTIME active Not Available Not Available No t Available Stimulant Laxative Plus 8.6 mg-50 mg tablet TAKE 1 TABLET BY MOUTH TWICE DAILY WHILE ON NARCOTICS TO PREVENT OR TREAT CONSTIPAT ION active Not Available Not Available No t Available Fluzone High-Dose Quad 2020-21 (PF) 240 mcg/0.7 mL IM syringe ADM 0.7ML IM UTD 11/29 completed Not Available Not Available Not Available Vitals Date Recorded Body height Body mass index (BMI) Body weight Provider Name and Address Organization Details Last Updated DateTime 11/29/2022 195.58 cm 29.1 kg/m2 996865.13 g Sukumar Alejandro MD [address] [facility],[address], [place], [address], [place] [facility] 11/29/2022 11:38:38 Date Recorded Body height Provider Name an d Address Organization Details Last Updated DateTime 01/22/2023 195.58 cm Josiah roper, [place] [facility] 01/22/2023 14:07:11 Date Recorded Body height Provider Name an d Address Organization Details Last Updated DateTime 04/09/2023 195.58 cm Josiah Karma roper [facility] 04/09/2023 17:13:08 Date Recorded Body height Body mass index (BMI) Body weight Provider Name and Address Organization Details Last Updated DateTime 05/16/2023 195.58 cm 30.4 kg/m2 354468.65 g Laura roper [facility] 05/16/2023 12:12:50 Date Recorded Body height Body mass index (BMI) Body weight Provider Name and Address Organization Details Last Updated DateTime 04/05/2020 185.42 cm 31 kg/m2 732603.21 g Josiah roper [facility] 04/05/2020 11:03:07 Date Recorded Body height Body mass index (BMI) Body weight Provider Name and Address Organization Details Last Updated DateTime 07/04/2021 195.58 cm 29.1 kg/m2 059593.13 g Sukumar Alejandro MD [address] [place] [address], [place], [address] 07/04/2021 14:28:05 Social History Question Answer Notes LastModified by Organizat ion Details LastModified Time Tobacco Smoking Status Former Smoker Josiahtravis roper [facility] 04/05/2020 11:03:17 What Was The Date Of Your Most Recent Tobacco Screening? 07/04/2021 Information not available 07/04/2021 Do You Or Have You Ever Used Any Other Forms Of Tobacco Or Nicotine? No Information not available 07/04/2021 Sex: Male Functional Status None recorded. Mental Status None recorded. Family History Nothing Reported. Medical History Condition Response High Blood Pressure Y High Cholesterol Y Heart Disease Y Immunizations Vaccine Type Date Status Provider Name and Address Organization Details Recorded Time Influenza, injectable, MDCK, preservative free, quadrivalent 02/03/2017 completed Laura roper [facility] 05/16/2023 12:13:04 zoster recombinant 11/24/2018 completed Laura ropre [facility] 05/16/2023 12:13:04 zoster recombinant 01/29/2019 completed Laura roper [facility] 05/16/2023 12:13:04 influenza, high-dose, quadrivalent 02/04/2020 completed Laura Edward null, [facility] 05/16/2023 12:13:04 Influenza vaccine, quadrivalent, adjuvanted 01/04/2021 completed Laura Edward null, [facility] 05/16/2023 12:13:04 COVID-19, mRNA, LNP-S, PF, 30 mcg/0.3 mL dose 06/13/2020 completed Laura Edward null, [facility] 05/16/2023 12:13:04 COVID-19, mRNA, LNP-S, PF, 30 mcg/0.3 mL dose 07/04/2020 completed Laura Edward null, [facility] 05/16/2023 12:13:04 COVID-19, mRNA, LNP-S, PF, 30 mcg/0.3 mL dose 04/11/2021 completed Laura Edward null, [facility] 05/16/2023 12:13:04 pneumococcal polysaccharide PPV23 07/13/2012 completed Laura Edward null, [facility] 05/16/2023 12:13:04 Tdap 02/21/2011 completed Laura Edward null, [facility] 05/16/2023 12:13:04 zoster live 02/21/2011 completed Laura Edward null, [facility] 05/16/2023 12:13:04 Influenza, high dose seasonal 12/23/2013 completed Laura Edward null, [facility] 05/16/2023 12:13:04 Influenza, high dose seasonal 12/27/2014 completed Laura Edward null, [facility] 05/16/2023 12:13:04 Influenza, high dose seasonal 01/03/2016 completed Laura Edward null, [facility] 05/16/2023 12:13:04 Influenza, high dose seasonal 01/13/2018 completed Laura Edward null, [facility] 05/16/2023 12:13:04 Influenza, high dose seasonal 02/21/2014 completed Laura Edward null, [facility] 05/16/2023 12:13:04 Influenza, high dose seasonal 03/01/2019 completed Laura Edward null, [facility] 05/16/2023 12:13:04 Influenza, seasonal, injectable 01/20/2013 completed Laura Edward null, [facility] 05/16/2023 12:13:05 Influenza, seasonal, injectable 02/11/2012 completed Laura Edward null, [facility] 05/16/2023 12:13:05 Influenza, seasonal, injectable, preservative free 02/11/2011 completed Laura Edward null, [facility] 05/16/2023 12:13:05 Pneumococcal conjugate PCV 13 05/09/2015 completed Laura Edward null, [facility] 05/16/2023 12:13:04 Past Encounters Encounter ID Performer Location Encounter Start Date Encounter Closed Date Diagnosis/Indication Diagnosis SNOMED-CT Code [id number] Sukumar Alejandro MD [facility] [address] [place] [id number] 04/05/2020 10:55:51 04/05/2020 13:08:57 Benign prostatic hyperplasia with outflow obstruction [id number] Sukumar Alejandro MD [facility] [address] [place] [address] 07/04/2021 13:40:52 07/06/2021 11:07:46 Lower urinary tract symptoms due to benign prostatic hypertrophy [id number] Benign pro static hyperplasia with outflow obstruction [id number] Suukmar Alejandro MD [facility] [address] [place] [address] 11/29/2022 11:30:02 12/07/2022 13:43:05 Benign prostatic hyperplasia with outflow obstruction [id number] Josiah Parada [facility] [address] [place] [id number] 01/22/2023 13:57:52 02/01/2023 21:08:09 Benign prostatic hyperplasia with outflow obstruction [id number] Josiah Parada [facility] [address] [place] [address] 04/09/2023 10:58:03 04/16/2023 13:33:12 Benign prostatic hyperplasia with outflow obstruction [id number] Sukumar Alejandro MD [facility] [address] [place] [id number] 04/15/2023 10:59:21 04/25/2023 10:58:50 Benign prostatic hyperplasia with outflow obstruction [id number] Sukumar Alejandro MD [facility] [address] [place] [address] 05/13/2023 10:14:25 05/14/2023 15:20:30 Benign prostatic hyperplasia with outflow obstruction [id number] Sukumar Alejandro MD [facility] [address] [place] [address] 05/16/2023 11:52:49 05/19/2023 12:13:53 Benign prostatic hyperplasia with outflow obstruction [id number] Health Concerns Section Related Observation LastModified by Organization Detai ls LastModified Time None Recorded Concern Status LastModified by Organization Details LastModified Time None Recorded Advance Directives Directive None Recorded Payers Encounter Date Sequence Insurance Name Policy Number Policy Mccallum Covered Member ID Mccallum Member ID Guarantor Name 05/16/2023 1 [employer] - DOS ON OR AFTER 19 (MEDICARE REPLACEMENT/ ADVANTAGE - HMO) [id number] 1 Stiven Randhawa [id number] Stiven Randhawa 05/13/2023 1 [employer] - DOS ON OR AFTER 19 (MEDICARE REPLACEMENT/ ADVANTAGE - HMO) [id number] 1 Stiven Randhawa [id number] Stiven Randhawa 04/15/2023 1 [employer] - DOS ON OR AFTER 19 (MEDICARE REPLACEMENT/ ADVANTAGE - HMO) [id number] 1 Stiven Randhawa [id number] Stiven Randhawa 04/09/2023 1 [employer] - DOS ON OR AFTER 19 (MEDICARE REPLACEMENT/ ADVANTAGE - HMO) [id number] 1 Stiven Randhawa [id number] Stiven Randhawa 01/22/2023 1 [employer] - DOS ON OR AFTER 19 (MEDICARE REPLACEMENT/ ADVANTAGE - HMO) [id number] 1 Stiven Randhawa [id number] Stiven Randhawa 11/29/2022 1 [employer] - DOS ON OR AFTER 19 (MEDICARE REPLACEMENT/ ADVANTAGE - HMO) [id number] 1 Stiven Casas Randhawa [id number] Stiven Randhawa 07/04/2021 1 [employer] - DOS ON OR AFTER 19 (MEDICARE REPLACEMENT/ ADVANTAGE - HMO) [id number] 1 Stiven Casas [place] [id number] Stiven Randhawa 04/05/2020 1 [employer] - DOS ON OR AFTER 19 (MEDICARE REPLACEMENT/ ADVANTAGE - PPO) [id number] Stiven Casas Sydnee [id number] Stiven Randhawa Notes Date Note Type Note Provider Name and Address Organization Details Recorded Time 04/05/2020 text/html HPI Notes: 74 YO M, REFERRED TODAY FOR BPH SYMPTOMS. HE STATES IT IS HARD TO FINISH URINATION ONCE HE HAS STARTED. LAST PSA = 1.4. TODAY PSA=__0.52 . on flomax an finasteride.UA NEG. PVR 0ML . prostate irritation TREATED WITH ANTIBIOTICS AND SX.S PERSIST. PRESENTLY DOING WELL. Sukumar Alejandro MD [address] [place] [address],[address], [place], [address], [facility] 04/05/2020 11:39:37 07/04/2021 text/html HPI Notes: 76 YO M, with A HISTORY OF BPH. HE WAS LAST SEEN (04-05-20) with A PSA= 0.52. HE TAKES TAMSULOSIN AND FINASTERIDE. pvr 90cc. u/a neg. overall satisfied. Sukumar Alejandro MD [address] [place] [address],[address], [place], [address], [facility] 07/04/2021 14:41:54 11/29/2022 text/html HPI Notes: 77 YO M, with A HISTORY OF BPH. HE WAS LAST SEEN (07/04/21) with A PSA= 0.52. HE TAKES TAMSULOSIN AND FINASTERIDE. PVR 49cc. u/a neg. overall satisfied. Sukumar Alejandro MD [address] [place] [address],[address], [place], [address], [facility] 11/29/2022 12:02:26 01/22/2023 text/html HPI Notes: 77 YO M, with A HISTORY OF BPH. HE WAS LAST SEEN (07/04/21) with A PSA= 0.52. HE TAKES TAMSULOSIN AND FINASTERIDE. PVR 49cc. u/a neg. REDUCED FLOW, FREQ, NOCTURIA. INTERESTED IN A PROCEDURE, SPECIFICALLY AQUABLATION. HERE FOR TRUS/CYSTO Josiahtravis roper, [facility] 01/30/2023 16:39:59 04/09/2023 text/html HPI Notes: Pt he re for TOV after aqua ablation. Urine bag was a darker red color so Dr. Alejandro was consulted. Dr. Alejandro recommended irrigating before removel. Pt set up and Dr. Alejandro irrigated about 1.5 L. Got out several clots. After irrigation, TOV performed by Dr. Alejandro. 200ml left in, 200 ml voided. Light red urine return with a couple of small clots. Josiah roper, [facility] 04/10/2023 11:08:44 04/15/2023 text/html HPI Notes: Pt he re for TOV after aqua ablation and failed TOV last week. Urine in the bag was yellow color without clots. A few dark brown clots noted in urine post void. Sukumar Alejandro MD [address] [place] [address],[address], [place], [address], [facility] 04/15/2023 13:03:52 05/13/2023 text/html HPI Notes: Pt presents to clinic for UA/UC and PVR as advised by triage - no documentation. Pt c/o lower abdominal pain, dark odorous urine and prostate pain Sukumar Alejandro MD [address] [place] [address],[address], [place], [address], [facility] 05/14/2023 10:03:15 05/16/2023 text/html HPI Notes: 77 Y/ O MALE , HX BPH, S/P AQUA THERAPY OF THE PROSTATE, 5 WKS AGO. OVERALL DOING WELL. PVR8CC, U/A POST TURP, U/C PREV NEG. Sukumar Alejandro MD [address] [place] [address],[address], [place], [address], [facility] 05/16/2023 16:53:49
--- OUTSIDE RECORDS SUMMARY | 2023-07-28 16:47 | XMS_ITS | Clinical Summary ---
Author Name Unknown Organization [facility] Address [address] [place] [address] Care Team Providers Care [employer] Insurance Sales Name Role Phone Anthony Ernst Primary Care Provider Unavailabl e Source Comments You are receiving this document as you are listed as the primary care provider,follow-up provider, or the patient has been referred to you for consultation.This is in compliance with the Medicare andMedicaid EHR Incentive Program,which states Providers who transition their patient to another setting of careor provider of care or refers their patient to another provider of care shouldprovide summary care record for each transition of care or referral. [facility] Active Allergy Reactions Criticality Noted Date Comments Sulfamethoxazole-Trimethoprim 2013 Medications Medication Sig Dispensed Refills Start Date End Date Status ascorbic acid (AKA VITAMIN C) 1000 MG tablet Take 1,000 mg by mouth daily (every 24 hours). 12/23/2013 Active Naproxen Sodium (ALEVE OR) Take by mouth. 12/23/2013 Active Melatonin ([facility] MELATONIN) 5 MG Take 5 mg by mouth nightly. 12/23/2013 Active ECHINACEA OR by Misc.(Non-Drug; Combo Route) route. 12/23/2013 Active omeprazole (PRILOSEC) 20 MG capsule Take 20 mg by mouth daily (every 24 hours). 12/23/2013 Active pregabalin (AKA LYRICA) 50 MG capsule Take 50 mg by mouth. 12/23/2013 Active ezetimibe-simvastatin (AKA VYTORIN) 10-80 MG tablet Take 1 tablet by mouth nightly. 12/23/2013 Active [place]-3 300 MG CAPS Take by mouth. 12/23/2013 A ctive Multiple Vitamins-Minerals (MULTIVITAMIN ADULT OR) Take 1 tablet by mouth daily (every 24 hours). 12/23/2013 Active folic Acid 800 MCG tablet Take 800 mcg by mouth daily (every 24 hours). 12/23/2013 Active aspirin EC 81 MG enteric coated tablet Take 81 mg by mouth daily (every 24 hours). 12/23/2013 Active tamsulosin (AKA FLOMAX) 0.4 MG CAPS Take 0.4 mg by mouth daily (every 24 hours). 12/23/2013 Active ATENolol (AKA TENORMIN) 50 MG tablet Take 50 mg by mouth daily (every 24 hours). 12/23/2013 Active Active Problems Problem Noted Date Diagnosed Date Osteoarthritis of multiple joints 12/23/2013 Overview: Osteoarthrosis involving, or with mention of more than one site, but not specified as generalized, multiple sites CAD (coronary artery disease) 12/23/2013 HTN (hypertension) 12/23/2013 Immunizations Name Administration Dates Next Due Flu Vac (3+ yrs) 01/20/2013,02/11/2012 Flu Vac Preserv Free (3+yrs) 02/11/2011 Influenza (Flucelvax), Prese rv Free QIV 02/03/2017 Influenza IIV3 (Trivalent) F petrona Highdose, 65+ Yrs (75424) 03/01/2019,01/13/2018,01/03/2016, 015,02/21/2014,12/23/2013 PCV13 (Prevnar) 05/09/2015 PPSV23 (Pneumovax) 07/13/2012 Tdap 02/21/2011 Zoster (Zostavax) 02/21/2011 Zoster RZV (Shingrix) 01/29/2019,11/24/2018 Social History Tobacco Use Types Packs/Day Years Used Date Smoking Tobacco: Former Smokeless Tobacco: Never Comments:Quit in 1970 Alcohol Use Standard Drinks/Week Comments Never 0 (1 standard drink = 0.6 oz pur e alcohol) AUDIT-C Answer Date Recorded Frequency of Alcohol Consumption Never 06/09/2019 Average Number of Drinks Not on file 020 Frequency of Binge Drinking Not on file 05/22 Sex and Gender Information Value Date Recorded Sex Assigned at Not on file Gender Identity Not on file Sexual Orientation Not on file Last Filed Vital Signs Vital Sign Reading Time Taken Comments Blood Pressure 152/68 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 Pulse 56 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 Temperature 36.4 ??C (97.6 ??F) 06/09/2019 10:[address] Respiratory Rate 12 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 Oxygen Saturation 100% 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 Inhaled Oxygen Concentration - - Weight 109.8 kg (242 lb) 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 Height - - Body Mass Index - - Plan of Treatment Health Maintenance Due Date Last Done Comments Hep C Screening (Preventive Services) 1945 Medicare Welcome Visit 1945 DTaP/Tdap/Td (2 - Tdap) 02/21/2021 02/21/2011 COVID-19 Vaccine (3 - 2022- season) 2022 07/04/2020, 06/13/2020 Influenza (#1) 2022 02/04/2020, 02/19, 01/13/2018, Additional history exists Pneumococcal 65+ Yrs Completed 05/09/2015, 07/14/19 13 Zoster/Shingles Completed 01/29/2019, 08/09/2018, 02/21/2011 HepA Aged Out No longer eligi ble based on patient's age to complete this topic HepB Aged Out No longer eligi ble based on patient's age to complete this topic Hib Aged Out No longer eligi ble based on patient's age to complete this topic IPV (Polio) Aged Out No longer eligi ble based on patient's age to complete this topic MCV4 Aged Out No longer eligi ble based on patient's age to complete this topic Care Teams Life Insurance Sales Relationship Specialty Start Date End Date Anthony Ernst PCP - General 07/24/10
--- OUTSIDE RECORDS SUMMARY | 2023-07-28 16:47 | XMS_ITS | Clinical Summary ---
Author Name Unknown Organization [facility] Address [place], [place] [address] Care Team Providers Care Planning Supervisor Name Role Phone Masoud, Kiley Holly DO Primary Care Provider [phone] Allergies Active Allergy Reactions Criticality Noted Date Comments Sulfamethoxazole-Trimethoprim *Unknown Unknown 2010 Sulfa (Sulfonamide Antibiotics) Hives High 01/20 Medications Medication Sig Dispensed Refills Start Date End Date Status ascorbic acid (VITAMIN C) 500 mg tablet Take 1 tablet by mouth once daily. 0 1 Active fish oil-omega-3 fatty acids (FISH OIL) 360-1,200 mg Cap Take 1 capsule by mouth once daily. 0 1 Active multivitamins-mine rals-lutein (CENTRUM SILVER) Tab tablet Take 1 tablet by mouth once daily. 0 1 Active medication order composer Takes probiotic 1 tablet a day 0 5 Active albuterol HFA (ProAir HFA) 90 mcg/actuation inhalerIndications :Bronchospasm Inhale 1-2 Puffs by mouth every 6 hours if needed for Shortness of Breath 2nd choice or Wheezing 1st choice. 2 Each 1 2 Active melatonin 10 mg tab Take 1 Tablet (10 mg) by mouth. Pt takes 20 mg nightly 0 2 Active folic acid 400 mcg tablet Take 400 mcg by mouth. Active aspirin (ECOTRIN) 81 mg enteric coated tabletIndications: Coronary artery disease involving [place] coronary artery of [place] heart without angina pectoris Take 1 Tablet (81 mg) by mouth once daily with a meal. HOLD for 7 days after prostate surgery, then resume when urine is clear of blood 3 Active docusate (COLACE) 100 mg capsuleIndications :Benign prostatic hyperplasia, unspecified whether lower urinary tract symptoms present Take 1 Capsule (100 mg) by mouth 2 times daily if needed for Constipation. 30 Capsule 3 Active pramipexole (Mirapex) 0.5 mg tabletIndications: Restless legs syndrome (RLS) Take 2 Tablets (1 mg) by mouth at bedtime. 30 Tablet 3 Active CPAPIndications:OS A (obstructive sleep apnea) CPAP machine for home use at pressure 10 cmw, full face mask x1/3month with a full face cushion x1/mo 1 Each 11 4 Active losartan (COZAAR) 50 mg tabletIndications: Essential hypertension Take 1 Tablet (50 mg) by mouth once daily. 30 Tablet 1 4 Active atorvastatin (LIPITOR) 40 mg tabletIndications: Hyperlipidemia LDL goal <100 Take 1 Tablet (40 mg) by mouth once daily. 90 Tablet 2 4 Active budesonide (RHINOCORT AQUA) (32 mcg each actuation) nasal sprayIndications:A llergic rhinitis, unspecified seasonality, unspecified trigger Inhale 2 Sprays to both nostrils once daily. 1 Each 11 4 Active celecoxib (CELEBREX) 100 mg capsuleIndications :Osteoarthritis, unspecified osteoarthritis type, unspecified site Take 1 Capsule (100 mg) by mouth two times daily with meals. 180 Capsule 1 4 Active furosemide (LASIX) 20 mg tabletIndications: Edema of both ankles Take 20 mg once daily; take an additional tablet if weight gain >3 lbs in 2 days or increase in lower leg swelling 135 Tablet 1 4 Active montelukast (SINGULAIR) 10 mg tabletIndications: Chronic rhinitis Take 1 Tablet (10 mg) by mouth at bedtime. 90 Tablet 3 4 Active omeprazole (PRILOSEC) 40 mg Delayed-Release capsuleIndications :Gastroesophageal reflux disease with esophagitis without hemorrhage TAKE 1 CAPSULE TWICE A DAY BEFORE MEALS 180 Capsule 2 4 Active oxyCODONE 10 mg tabletIndications: Restless legs syndrome (RLS) Take 1-1.5 Tablets (10-15 mg) by mouth at bedtime. 45 Tablet 03/26/202 4 Active NIFEdipine (PROCARDIA XL) 30 mg extended-release tabletIndications: Essential hypertension Take 1 Tablet (30 mg) by mouth once daily before a meal. 30 Tablet 4 Active azelastine 137 mcg/actuation (ASTELIN) nasal sprayIndications:C hronic rhinitis USE 2 SPRAYS INTO AFFECTED NOSTRIL(S) TWICE A DAY 90 mL 1 4 Active pregabalin (LYRICA) 150 mg capsuleIndications :Restless legs syndrome (RLS) Take 150 mg after supper and then 300 mg before bed to treat restless legs 270 Capsule 3 4 Active azelastine 137 mcg/actuation (ASTELIN) nasal sprayIndications:C hronic rhinitis Inhale 2 Sprays into affected nostril(s) two times daily. 90 mL 1 3 07/19/19 24 Discontinued oxyCODONE 10 mg tabletIndications: Restless legs syndrome (RLS) Take 1-1.5 Tablets (10-15 mg) by mouth at bedtime. 45 Tablet 4 07/15/19 24 Discontinued(Re order (E-cancel not sent)) cephalexin (KEFLEX) 500 mg capsuleIndications :Ischemic toe ulcer, left, with fat layer exposed (HC),Trench foot of left lower extremity, initial encounter,Frostbit e of left great toe, initial encounter,Frostbit e with tissue necrosis of toe of left foot, initial encounter,Skin ulcer of left great toe with fat layer exposed (HC),Ulcer of left second toe, with fat layer exposed (HC) Take 1 Capsule (500 mg) by mouth three times daily for 10 days. 30 Capsule 4 07/04/19 24 NIFEdipine (PROCARDIA XL) 30 mg extended-release tabletIndications: Essential hypertension Take 1 Tablet (30 mg) by mouth once daily before a meal. 30 Tablet 1 4 07/16/19 24 Discontinued(*A vailability/For mulary change/Cost of medication) pregabalin (LYRICA) 150 mg capsuleIndications :Restless legs syndrome (RLS) Take 150 mg after supper and then 300 mg before bed to treat restless legs 90 Capsule 3 4 06/30/19 24 Discontinued(Re order (E-cancel not sent)) pregabalin (LYRICA) 150 mg capsuleIndications :Restless legs syndrome (RLS) Take 150 mg after supper and then 300 mg before bed to treat restless legs 30 Capsule 4 07/11/19 24 Discontinued(Re order (E-cancel not sent)) pregabalin (LYRICA) 150 mg capsuleIndications :Restless legs syndrome (RLS) Take 150 mg after supper and then 300 mg before bed to treat restless legs 30 Capsule 4 07/25/19 24 Discontinued(*E rror/file clerk data entry error) Active Problems Problem Noted Date Diagnosed Date BPH with obstruction/lower urinary tract symptom s 04/08/2023 Pseudopolyposis of colon wit hout complication, unspecified part of colon 04/23/2022 First degree AV block 04/23/2022 Seasonal allergic rhinitis due to pollen 019 DJD (degenerative joint dise ase), ankle and foot, unspecified laterality 04/22/2018 Osteoarthritis of right glenohumeral joint 02/10 Diplopia 07/02/2016 Overview: Due to left supra optic nerve palsy Insomnia 06/12/2016 RLS (restless legs syndrome) 06/12/2016 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 Overview: Bilateral foot pain since his foot surgeries in the early 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 He has had numerous negative treadmill since that time and the track repair laborer have told him that he does not need any further evaluations unless he develops any new symptoms Benign prostatic hyperplasia with lower urinary tract symptoms Overview: Finasteride and tamsulosin Hyperlipidemia LDL goal <100 Overview: Atorvastatin ESDRAS 10/08/2006 AHI-67 Overview: wears CPAP GERD (gastroesophageal reflux disease) Overview: EGD 10/2010 reflux,no follow up EGD 10/2019 Reactive gastropathy, try stopping celecoxib Resolved Problems Problem Noted Date Diagnosed Date Resolved Date Cellulitis of right foot 08/29/202006/2022 Overview: 08/29/2020 xray right foot: Previous resection of the head of the proximal phalanx right toe. Slight cortical irregularity and sclerosis of the distal end of the proximal phalanx is probably chronic. No new bony abnormality to suggest acute osteomyelitis. Soft tissue swelling second toe and dorsum of the foot. Advanced degenerative arthritis of the talonavicular joint. 08/30/2020 MRI right foot: 1. ??Reactive osteitis throughout the distal phalanx of the second toe without definite osteomyelitis. ?? 2. ??Prior resection of the distal portion of the proximal phalanx of the great toe. ?? 3. ??Moderate dorsal subcutaneous cellulitis in the mid and forefoot. ?? 4. ??Marked global atrophy of the intrinsic musculature of the foot. 08/31/2020 skin culture: 1+ Gram Negative Bacilli 1+ Gram Positive Bacilli 09/01/2020 change antibiotic from vancomycin to Zosyn. Prostatitis, acute 11/24/2018 1 Pain in both feet 04/22/2018 04/22/2018 Pain in both feet 06/12/2016 Overview: chronic Osteomyelitis of second toe of right foot 04/23/2022 Encounters Date Type Department Care Team Description 07/25/2023 Refill [facility] [address] [place] [address] Oliver Edward MD Refill Request (pregabalin (LYRICA) 150 mg capsule) 07/18/2023 Refill [facility] [address] [place] [address] Cassandra Garcia, DO Refill Request (Azelastine 137 Mcg/actuation) 07/15/2023 Refill [facility] [address] [place] [address] Kiley Meredith DO Refill Request (Nifedipine 30mg ER) 07/15/2023 Refill [facility] [address] [place] [address] Oliver Edward MD Refill Request (oxyCODONE 10 mg tablet) 07/11/2023 Refill [facility] [address] [place] [address] Kiley Meredith DO Refill Request (pregabalin (LYRICA)//) 07/10/2023 8:29 AM CDT - 07/10/2023 11:59 PM CDT Hospital Encounter [facility] [address] [place] [address] Kiley Meredith DO Dizziness; Bradycardia 07/10/2023 Refill [facility] [address] [place] [address] Kiley Meredith DO Refill Request (pregabalin (LYRICA) 150 mg capsule) 07/10/2023 Travel 07/08/2023 11:15 AM CDT [place] [facility] [address] [place] [address] Antonino Argueta DPM Foot Problem (Follow up left foot) 07/08/2023 Travel 07/02/2023 Orders Only [facility] Scanner 1 scan: (1-Ord) [facility], [address], 07/02/2023 06/30/2023 Refill [facility] [address] [place] [address] Oliver Edward MD Refill Request 06/30/2023 Telephone [facility] [address] [place] [address] Oliver Edward MD Medication Management (pregabalin (LYRICA) 150 mg capsule ) 06/28/2023 Refill [facility] [address] [place] [address] Kiley Meredith DO Refill Request (pregabalin (LYRICA) 150 mg capsule) 06/26/2023 Refill [facility] [address] [place] [address] Oliver Edward MD Refill Request (LYRICA) 06/26/2023 Telephone [facility] [address] [place] [address] Kiley Meredith DO Medication Management 06/25/2023 Orders Only [facility] Scanner 1 scan: (1-Ord) [facility], INJ LT KNEE, 06/25/2023 06/24/2023 1:00 PM MEDICAL RECORDS FIELD TECHNICIAN [place] [facility] [address] [place] [address] Antonino Argueta, DPM Foot Problem (Blisters on toes) 06/24/2023 Travel 06/19/2023 Refill [facility] [address] [place] [address] Oliver Edward MD Refill Request (oxyCODONE 10 mg tablet/) 06/18/2023 9:10 AM MEDICAL RECORDS FIELD TECHNICIAN Office Visit [facility] [address] [place] [address] Kiley Meredith, Blood Pressure (Has had some elevated readings at home in the high 140's range, and was elevated at the pain clinic prior to injections. ) 06/18/2023 8:30 AM MEDICAL RECORDS FIELD TECHNICIAN Office Visit [address] [place] [address] 06/18/2023 Travel 06/10/2023 1:00 PM MEDICAL RECORDS FIELD TECHNICIAN Ancillary Procedure [address] [place] [address] 06/10/2023 Travel 05/23/2023 Orders Only [facility] [place] [address] Kiley Meredith, 1 scan: (1-Ord) NFLD-EKG-05/22/23 05/22/2023 9:10 AM MEDICAL RECORDS FIELD TECHNICIAN Office Visit [address] [place] [address] Kiley Meredith, Blood Pressure (home readings have been mid 140's over 70's Taking in the morning time while sitting. ); Dizziness (Continued dizziness, ongoing for several years at this point) 05/22/[address] [place] [address] Kiley Meredith, Refill Request (Losartan 50mg 90 day supply) 05/22/2023 Travel 05/12/[address] [address] Oliver Edward MD Follow Up 04/28/2023 9:10 AM MEDICAL RECORDS FIELD TECHNICIAN Office Visit [address] [place] [address] Kiley Meredith, Blood Pressure 04/28/[address] [address] Kiley Meredith, Refill Request 04/28/2023 Travel from Last 3 Months Immunizations Name Administration Dates Next Due COVID-19 vaccine (Bettyvision-Bio NTech 30mcg/0.3mL) 12YO+ BIVALENT PF, MDV 02/05/2022 COVID-19 vaccine (Pfizer-Bio NTech 30mcg/0.3mL) PF, MDV 04/11/2021,07/04/2020,06/13/2020 Influenza, High-dose Inactivated 01/03/2016,0 11/2014,02/21/2014 Influenza, High-dose Quadriv alent Inactivated 02/04/2020 Influenza, IIV3 (Age 6-35 mos) 02/03/2017 Influenza, IIV3 (Age >=3 years) 01/21/20 13,02/11/2012,02/11/2011,2009 Influenza, Inactivated AIIV4 (Age 65+ Years) Preserv Free 01/22/2023,02/05/2022,01/04/2021 Influenza, Inactivated IIV3 (Age 65+ Years) Preserv Free 01/13/2018 Pneumococcal Poly,23-Valent (Pneumovax) 07/13/2012 Pneumococcal conj 13-Valent (Prevnar 13) 05/09/2015 Tdap 04/23/2022,02/21/2011 Zoster (Shingrix-RZV, recombinant) 01/29/2019, Zoster (Zostavax-ZVL, live) 02/21/2011 Family History Medical History Relation Name Comments Asthma Father Cancer-prostate Father Hypertension Father Other Father kidney removed Hyperlipidemia Mother Hypertension Mother Allergies Sister 3 Relation Name Status Comments Father (Age 90) Mother (Age 94) Sister 1 Alive Sister 2 Alive Sister 3 Social History Tobacco Use Types Packs/Day Years Used Date Smoking Tobacco: Former Cigarettes 1 6 0 04/21/1963 - 04/21/1969 Smokeless Tobacco: Never Tobacco Cessation:Counseling Given: Yes Alcohol Use Standard Drinks/Week Comments No 0 (1 standard drink = 0.6 oz pur e alcohol) PHQ-2 Answer Date Recorded PHQ-2 TOTAL SCORE 0 01/22/2023 Social Connections Answer Date Recorded Frequency of Communication with Friends and Fami ly 0 03/28/2023 Financial Resource Strain Answer Date R ecorded Difficulty of Paying Living Expenses 1 03/28/2023 Difficulty of Paying Living Expenses 2 03/28/2023 Food Insecurity Answer Date Recorded Worried About Running Out of Food in the Last Ye ar 1 03/28/2023 Transportation Needs Answer Date Record ed Lack of Transportation (Medical) 1 03/28/2023 Housing Stability Answer Date Recorded Unable to Pay for Housing in the Last Year 1 03/28/2023 Sex and Gender Information Value Date Recorded Sex Assigned at Not on file Gender Identity Not on file Sexual Orientation Not on file Obstetrics History Last Filed Vital Signs Vital Sign Reading Time Taken Comments Blood Pressure 171/74 06/18/2023 10:03 AM MEDICAL RECORDS FIELD TECHNICIAN Pulse 61 06/18/2023 9:11 AM MEDICAL RECORDS FIELD TECHNICIAN Temperature 36.8 ??C (98.2 ??F) 04/08/2023 7:00 AM CS T Respiratory Rate 16 07/08/2023 11:04 AM CDT Oxygen Saturation 100% 06/18/2023 9:11 AM MEDICAL RECORDS FIELD TECHNICIAN Inhaled Oxygen Concentration - - Weight 119.3 kg (263 lb) 06/18/2023 9:11 AM MEDICAL RECORDS FIELD TECHNICIAN Height 195.6 cm (6' 5) 04/22/2023 9:13 AM MEDICAL RECORDS FIELD TECHNICIAN Body Mass Index 31.19 04/22/2023 9:13 AM MEDICAL RECORDS FIELD TECHNICIAN Plan of Treatment Upcoming Encounters Date Type Department Care Team (Late st Contact Info) Description 07/29/2023 9:15 AM CDT Office [place] [facility] [address] [place] [address] Antonino Argueta, DPM [address] [place] [address] 07/30/2023 8:45 AM CDT Office Visit [facility] [address] [place] [address] Kiley Meredith, [address] [place] [address] Health Maintenance Due Date Last Done Comments Medicare Wellness for age 65+ 08/12/2019 08/11/2018 COVID-19 vaccine series ( season) 2022 02/05/2022, 04/11/2021, 07/04/2020, Additional history exists Influenza for age 65+ 12/21/2023 01/22/2023 , 02/05/2022, 01/04/2021, Additional history exists Depression screening for age 12+ 01/23/2024 01/22/2023, 01/22/2023, 07/02/2021, Additional history exists BMI (ht and wt on same day) for age 18+ 04/22/2024 04/22/2023, 03/28/2023, 01/08/2023, Additional history exists Tetanus booster 04/23/2032 04/23/2022, 06/2010, 02/21/2011 Pneumococcal series for age 65+ Completed 6, 07/13/2012 Zoster (shingles) series for age 50+ Completed 01/29/2019, 11/24/2018, 02/21/2011 Hepatitis C screening for ag e 18-79 Completed 11/29/2019 Tdap Completed 04/23/2022, 02/21/2011 Procedures Procedure Name Priority Date/Time Associated Diagnosis Comments MR HEAD BRAIN STROKE WWO MR ANGIO HEAD WO NECK WWO Routine 07/10/2023 9:53 AM CDT Dizziness Bradycardia EXTENDED HOLTER Routine 07/03/2023 Dizziness Bradycardia SCAN-OPERATIVE/PRO CEDURE REPORT 07/02/2023 12:00 AM CDT SCAN-OPERATIVE/PRO CEDURE REPORT 06/25/2023 12:00 AM MEDICAL RECORDS FIELD TECHNICIAN US CAROTID DUPLEX BILATERAL Routine 06/10/2023 1:15 PM MEDICAL RECORDS FIELD TECHNICIAN Dizziness EKG 12 LEAD Routine 05/23/2023 2:00 PM MEDICAL RECORDS FIELD TECHNICIAN Dizziness Essential hypertension VA READING EKG - NO CHARGE, COMP ONLY Routine 05/23/2023 1:59 PM MEDICAL RECORDS FIELD TECHNICIAN Dizziness Essential hypertension BASIC METABOLIC PANEL Routine 05/22/2023 10:23 AM MEDICAL RECORDS FIELD TECHNICIAN Essential hypertension ANTI HCV Routine 11/29/2019 10:03 AM CDT Need for hepatitis C screening test from Last 3 Months or Most Recently Relevant to Health Maintenance Results * MR HEAD BRAIN STROKE WWO MR ANGIO HEAD WO NECK WWO (07/10/2023 9:53 AM CDT) Anatomical Region Laterality Modality NECK, CAROTID, HEAD Magnetic Res onance 07/10/2023 11:1 3 AM CDT Addenda Addendum by Khadijah Koch DO on 07/10/2023 11:17 AM CDT For Patients: ??As a result of the Cures Act, medical imaging exams and procedure reports are released immediately into your electronic medical record. ??You may view this report before your referring provider. ?? If you have questions, please contact your health care provider. Indication: Dizziness, bradycardia Technique: MRI Head: performed before and after IV contrast. MRA Head: performed without IV contrast. MRA Neck: performed before and after IV contrast. Gadolinium-based contrast agent: 10 mL Gadavist IV contrast. Comparison: CT sinus 08/22/2022, CT head 04/23/2022, MRI brain 07/04/2016. Findings: There is metal artifact emanating from the face, presumably from dental hardware, degrading image quality and limiting evaluation. MRI Head: No evidence for recent infarct or hemorrhage. No intracranial mass effect. No ventricular obstruction. White matter signal is unremarkable for age. No suspicious brain parenchymal enhancement identified. Questioned trace layering secretions in the maxillary sinuses. No mastoid effusion. Bilateral lens implants. MRA Head: The intracranial segments of the internal carotid arteries and basilar artery are widely patent. The anterior middle and posterior cerebral arteries and proximal branches are unremarkable. No evidence of an aneurysm over 3 mm. No high-flow AV malformation. No high-grade stenosis. MRA Neck: The bilateral common carotid arteries internal and external carotid arteries are widely patent. No stenosis near the common carotid bifurcations. The bilateral vertebral artery origins and proximal segments are obscured by artifact. The visualized cervical vertebral artery segments are grossly patent. Impression: MRI Head: 1. No acute pathology identified. No evidence for mass, hemorrhage or recent infarct given artifact limitations. MRA Head: 1. No proximal arterial occlusion or high-grade stenosis, significant aneurysm or vascular malformation. MRA Neck: 1. No evidence of hemodynamically significant stenosis or acute dissection in the neck. Dictated by Khadijah Koch MD @ 07/10/2023 11:16:59 AM (Electronically Signed) Addendum by Khadijah Koch DO on 07/10/2023 11:14 AM CDT For Patients: ??As a result of the Cures Act, medical imaging exams and procedure reports are released immediately into your electronic medical record. ??You may view this report before your referring provider. ?? If you have questions, please contact your health care provider. Indication: Dizziness, bradycardia Technique: MRI Head: performed before and after IV contrast. MRA Head: performed without IV contrast. MRA Neck: performed before and after IV contrast. Gadolinium-based contrast agent: 10 mL Gadavist IV contrast. Comparison: CT sinus 08/22/2022, CT head 04/23/2022, MRI brain 07/04/2016. Findings: There is metal artifact emanating from the face, presumably from dental hardware, degrading image quality and limiting evaluation. MRI Head: No evidence for recent infarct or hemorrhage. No intracranial mass effect. No ventricular obstruction. White matter signal is unremarkable for age. No suspicious brain parenchymal enhancement identified. Questioned trace layering secretions in the maxillary sinuses. No mastoid effusion. Bilateral lens implants. MRA Head: The intracranial segments of the internal carotid arteries and basilar artery are widely patent. The anterior middle and posterior cerebral arteries and proximal branches are unremarkable. No evidence of an aneurysm over 3 mm. No high-flow AV malformation. No high-grade stenosis. MRA Neck: The bilateral common carotid arteries internal and external carotid arteries are widely patent. No stenosis near the common carotid bifurcations. The bilateral vertebral artery origins and proximal segments are obscured by artifact. The visualized cervical vertebral artery segments are grossly patent. Impression: MRI Head: 1. No acute pathology identified. No evidence for mass, hemorrhage or recent infarct given artifact limitations. MRA Head: 1. No proximal arterial occlusion or high-grade stenosis, significant aneurysm or vascular malformation. MRA Neck: 1. No evidence of hemodynamically significant stenosis or acute dissection in the neck. Dictated by Khadijah Koch MD @ 07/10/2023 11:14:04 AM (Electronically Signed) Narrative 07/10/2023 11:13 AM CDT For Patients: ??As a result of the 21st Century Cures Act, medical imaging exams and procedure reports are released immediately into your electronic medical record. ??You may view this report before your referring provider. ??If you have questions, please contact your health care provider. Indication: Dizziness, bradycardia Technique: MRI Head: performed before and after IV contrast. MRA Head: performed without IV contrast. MRA Neck: performed before and after IV contrast. Gadolinium-based contrast agent: 10 mL Gadavist IV contrast. Comparison: CT sinus 08/22/2022, CT head 04/23/2022, MRI brain 07/04/2016. Findings: There is metal artifact emanating from the face, presumably from dental hardware, degrading image quality and limiting evaluation. MRI Head: No evidence for recent infarct or hemorrhage. No intracranial mass effect. No ventricular obstruction. White matter signal is unremarkable for age. No suspicious brain parenchymal enhancement identified. Questioned trace layering secretions in the maxillary sinuses. No mastoid effusion. Bilateral lens implants. MRA Head: The intracranial segments of the internal carotid arteries and basilar artery are widely patent. The anterior middle and posterior cerebral arteries and proximal branches are unremarkable. No evidence of an aneurysm over 3 mm. No high-flow AV malformation. No high-grade stenosis. MRA Neck: The bilateral common carotid arteries internal and external carotid arteries are widely patent. No stenosis near the common carotid bifurcations. The bilateral vertebral artery origins and proximal segments are obscured by artifact. The visualized cervical vertebral artery segments are grossly patent. Impression: MRI Head: 1. No acute pathology identified. No evidence for mass, hemorrhage or recent infarct given artifact limitations. MRA Head: 1. No proximal arterial occlusion or high-grade stenosis, significant aneurysm or vascular malformation. MRA Neck: 1. No evidence of hemodynamically significant stenosis or acute dissection in the neck. Dictated by Khadijah Koch MD @ 07/10/2023 11:13:36 AM (Electronically Signed) Procedure Note Khadijah Koch, - 07/10/2023 For Patients: As a result of the Century Cures Act, medical imagingexams and procedure reports are released immediately into your electronicmedical record. You may view this report before your referring provider.If you have questions, please contact your health care provider. Indication: Dizziness, bradycardia Technique: MRI Head: performed before and after IV contrast. MRA Head: performed without IV contrast. MRA Neck: performed before and after IV contrast. Gadolinium-based contrast agent: 10 mL Gadavist IV contrast. Comparison: CT sinus 08/22/2022, CT head 04/23/2022, MRI brain 07/04/2016. Findings: There is metal artifact emanating from the face, presumably from dentalhardware, degrading image quality and limiting evaluation. MRI Head: No evidence for recent infarct or hemorrhage. No intracranial mass effect.No ventricular obstruction. White matter signal is unremarkable for age.No suspicious brain parenchymal enhancement identified. Questioned tracelayering secretions in the maxillary sinuses. No mastoid effusion.Bilateral lens implants. MRA Head: The intracranial segments of the internal carotid arteries and basilarartery are widely patent. The anterior middle and posterior cerebralarteries and proximal branches are unremarkable. No evidence of ananeurysm over 3 mm. No high-flow AV malformation. No high-gradestenosis. MRA Neck: The bilateral common carotid arteries internal and external carotidarteries are widely patent. No stenosis near the common carotidbifurcations. The bilateral vertebral artery origins and proximal segmentsare obscured by artifact. The visualized cervical vertebral arterysegments are grossly patent. Impression: MRI Head: 1. No acute pathology identified. No evidence for mass, hemorrhage orrecent infarct given artifact limitations. MRA Head: 1. No proximal arterial occlusion or high-grade stenosis, significantaneurysm or vascular malformation. MRA Neck: 1. No evidence of hemodynamically significant stenosis or acute dissectionin the neck. Dictated by Khadijah Koch MD @ 07/10/2023 11:13:36 AM (Electronically Signed) Kiley Meredith DO MR * ZIO PATCH XT - weekly to monthly symptoms. (07/03/2023) Kileylori Holly Masoud DO CARDIAC SERVICES O RD * SCAN-OPERATIVE/PROCEDURE REPORT (07/02/2023 12:00 AM CDT) Scanner OTHER * SCAN-OPERATIVE/PROCEDURE REPORT (06/25/2023 12:00 AM MEDICAL RECORDS FIELD TECHNICIAN) Scanner OTHER * US CAROTID DUPLEX BILATERAL (06/10/2023 1:15 PM MEDICAL RECORDS FIELD TECHNICIAN) Anatomical Region Laterality Modality CAROTID, NECK Ultrasound Impressions 06/13/2023 8:40 AM MEDICAL RECORDS FIELD TECHNICIAN Less than 50 percent stenosis of the internal carotid arteries bilaterally. Signed by: Anthony Hammer MD @06/11/2023 3:43:31 PM Narrative 06/13/2023 8:40 AM MEDICAL RECORDS FIELD TECHNICIAN CLINICAL HISTORY: Dizziness TECHNIQUE: The carotid circulations and the vertebral arteries in the neck were examined with juarez-scale ultrasound, color-flow and Doppler spectral analysis. Degrees of stenosis were determined using SRU 2002 Consensus Panel Criteria. FINDINGS: Sonographic images demonstrate bilateral atherosclerotic plaque formation without suspicious soft tissue mass. There was antegrade blood flow demonstrated within the vertebral arteries and the subclavian arteries demonstrated a normal triphasic waveform. The spectral Doppler tracings of the common carotid, internal and external carotid arteries demonstrate no abnormal turbulence or spectral broadening. There was no significant elevation of peak systolic blood flow which would indicate a hemodynamically-significant stenosis by SRU criteria. The ICA/CCA peak systolic velocity ratio measures 0.89 on the right and 0.90 on the left. Kiley Andersonxler DO US * EKG 12 LEAD (05/23/2023 2:00 PM MEDICAL RECORDS FIELD TECHNICIAN) Kiley Andersonxler DO EKG ORD * VA READING EKG - NO CHARGE, COMP ONLY (05/23/2023 1:59 PM MEDICAL RECORDS FIELD TECHNICIAN) Kiley Andersonxler DO PB - PROVIDER READ INGS * (ABNORMAL) BASIC METABOLIC PANEL (05/22/2023 10:23 AM MEDICAL RECORDS FIELD TECHNICIAN) SODIUM 141 136 - 145 mmol/L 05/23/2023 10:08 AM [facility] POTASSIUM 4.3 3.5 - 5.1 mmol/L 05/23/2023 10:08 AM [facility] CHLORIDE 105 98 - 107 mmol/L 05/23/2023 10:08 AM [facility] CO2,TOTAL 26 22 - 29 mmol/L 05/23/2023 10:08 AM [facility] ANION GAP 10 5 - 18 05/23/2023 10:08 AM [facility] GLUCOSE 114(H) 70 - 99 mg/dL 05/23/2023 10:08 AM [facility] CALCIUM 9.4 8.8 - 10.2 mg/dL 05/23/2023 10:08 AM [facility] BUN 26(H) 8 - 23 mg/dL 05/23/2023 10:08 AM [facility] CREATININE 0.94 0.70 - 1.20 mg/dL 05/23/2023 10:08 AM [facility] BUN/CREAT RATIO 28(H) 10 - 20 10:08 AM [facility] eGFR 84(L) >90 mL/min/1.7 3m2 05/23/2023 10:08 AM MEDICAL RECORDS FIELD TECHNICIAN [facility] Comment:As of 2021, eG FR is calculated by the CKD-EPI creatinine equation without race adjustment. ??eGFR can be influenced by muscle mass, exercise, and diet. ??The reported eGFR is an estimation only and is only applicable if the renal function is stable. Blood BLOOD SPECIMEN / Unknown Venipuncture / Unknown 05/22/2023 10:23 AM MEDICAL RECORDS FIELD TECHNICIAN 05/22/2023 10:25 AM MEDICAL RECORDS FIELD TECHNICIAN Kiley Meredith DO CHEMISTRY [facility] INTERNAL ZIP [phone] [address] [place] [address] * ANTI HCV (11/29/2019 10:03 AM CDT) HEPATITIS C ANTIBODY Non-React flaco Non-React flaco 11/29/2019 5:31 PM CDT [facility] Comment:Antibodies to HCV no t detected; does not exclude the possibility of exposure to HCV. Blood BLOOD SPECIMEN / Unknown Venipuncture / Unknown 11/29/2019 10:03 AM CDT 11/29/2019 10:06 AM CDT Srinivasan Loyd MD SEND OUTS [facility] [address] [place] [address], [place] from Last 3 Months or Most Recently Relevant to Health Maintenance Advance Directives * Full Code (Latest Code Status on File) Date Activated Date Inactivated Comments 04/07/2023 11:40 AM 04/08/2023 5:36 PM Question Answer Comments Code Status Discussion: Not Discussed * Full Code Date Activated Date Inactivated Comments 08/29/2020 10:14 PM 09/04/2020 4:47 PM Question Answer Comments Code Status Discussion: Not DiscussedPer Existin g Order * Full Code Date Activated Date Inactivated Comments 12/06/2019 11:41 AM 12/06/2019 2:47 PM Question Answer Comments Code Status Discussion: Discussed * Full Code Date Activated Date Inactivated Comments 12/06/2019 8:00 AM 12/06/2019 11:41 AM Question Answer Comments Code Status Discussion: Discussed Care Teams Planning Supervisor Relationship Specialty Start Date End Date Kiley [place]eredith [place] [address] [place] [address] PCP - General Family Practice 04/28/23
--- OUTSIDE RECORDS SUMMARY | 2023-07-28 16:47 | XMS_ITS | Clinical Summary ---
Author Name Unknown Organization [facility] Address [address] [place] [address]. [place] [address] Care Team Providers Care Suspension Cord Tier Name Role Phone Srinivasan Loyd Primary Care Provider Unavailabl e Allergies Active Allergy Reactions Criticality Noted Date Comments Sulfamethoxazole-Trimethoprim 2021 Sulfa Antibiotics High 02/13/2011 Medications Medication Sig Dispensed Refills Start Date End Date Status tamsulosin (FLOMAX) 0.4 MG 24 hr capsule Take 0.4 mg by mouth daily 0 Active omeprazole (PRILOSEC) 40 MG capsule Take 40 mg by mouth 2 times daily 0 Active atenolol (TENORMIN) 50 MG tablet Take 50 mg by mouth every evening 0 Active Multiple Vitamins-Minerals (PRESERVISION AREDS 2 PO) Take 1 capsule by mouth daily 0 Active atorvastatin (LIPITOR) 40 MG tablet Take 40 mg by mouth daily 0 Active celecoxib (CELEBREX) 100 MG capsule Take 100 mg by mouth 2 times daily 0 Active gabapentin (NEURONTIN) 600 MG tablet Take 1,200 mg by mouth At Bedtime 0 Active finasteride (PROSCAR) 5 MG tablet Take 5 mg by mouth daily 0 Active cholecalciferol 25 MCG (1000 UT) TABS Take 1,000 Units by mouth daily 0 Active pramipexole (MIRAPEX) 0.5 MG tablet Take 1 mg by mouth At Bedtime 0 Active pramipexole (MIRAPEX) 0.5 MG tablet Take 0.5 mg by mouth nightly as needed Can take in addition to scheduled pramipexole 0 Active coenzyme Q-10 200 MG CAPS Take 200 mg by mouth daily 0 Active albuterol (PROAIR HFA/PROVENTIL HFA/VENTOLIN HFA) 108 (90 Base) MCG/ACT inhaler Inhale 1-2 puffs into the lungs every 6 hours as needed for shortness of breath / dyspnea or wheezing 0 Active vitamin C (ASCORBIC ACID) 500 MG tablet Take 500 mg by mouth daily 0 Active [place]-3 Fatty Acids (FISH OIL) 1200 MG capsule Take 1,200 mg by mouth daily 0 Active fluticasone (FLONASE) 50 MCG/ACT nasal spray [place] 2 sprays into both nostrils daily as needed for rhinitis or allergies 0 Active azelastine (ASTELIN) 0.1 % nasal spray [place] 1 spray into both nostrils daily as needed for rhinitis 0 Active folic acid (FOLVITE) 400 MCG tablet Take 400 mcg by mouth daily 0 Active Melatonin 10 MG TABS tablet Take 5 mg by mouth nightly as needed for sleep 0 Active aspirin 81 MG EC tabletIndications: S/P reverse total shoulder arthroplasty, left Take 1 tablet (81 mg) by mouth 2 times daily 60 tablet 0 07/17/2021 Active senna-docusate (SENOKOT-S/PERICOL KYAW) 8.6-50 MG tabletIndications: S/P reverse total shoulder arthroplasty, left Take 1 tablet by mouth 2 times daily Take while on oral narcotics to prevent or treat constipation. 30 tablet 0 07/17/2021 Active acetaminophen (TYLENOL) 325 MG tabletIndications: S/P reverse total shoulder arthroplasty, left Take 2 tablets (650 mg) by mouth every 4 hours as needed for other (mild pain) 100 tablet 0 07/17/2021 Active hydrOXYzine (ATARAX) 10 MG tabletIndications: S/P reverse total shoulder arthroplasty, left Take 1 tablet (10 mg) by mouth every 6 hours as needed for itching or anxiety (with pain, moderate pain; pain med enhancer; muscle spasms) 30 tablet 0 07/17/2021 Active Active Problems Problem Noted Date Diagnosed Date S/P reverse total shoulder arthroplasty, left Resolved Problems Problem Noted Date Diagnosed Date Resolved Date iamJOINT PAIN-ANKLE 05/29/2005 07/05/19 06 iamARTHRODESIS STATUS 05/29/20052005 Immunizations Name Administration Dates Next Due Flu, Unspecified 12/27/2014 Social History Tobacco Use Types Packs/Day Years Used Date Smoking Tobacco: Former Cigarettes Q uit: 05/31/1969 Smokeless Tobacco: Never Alcohol Use Standard Drinks/Week Comments No 0 (1 standard drink = 0.6 oz pur e alcohol) Adolescent Education Answer Date Record ed Getting School Help Needed Not on file 01/21 Sex and Gender Information Value Date Recorded Sex Assigned at Not on file Gender Identity Not on file Sexual Orientation Not on file Last Filed Vital Signs Vital Sign Reading Time Taken Comments Blood Pressure 111/58 07/18/2021 7:57 AM CDT Pulse 65 07/18/2021 7:57 AM CDT Temperature 36.4 ??C (97.6 ??F) 07/18/2021 7:57 AM CD T Respiratory Rate 18 07/18/2021 7:57 AM CDT Oxygen Saturation 96% 07/18/2021 7:57 AM CDT Inhaled Oxygen Concentration - - Weight 115.9 kg (255 lb 9.6 oz) 07/17/2021 6:43 AM CDT Height 195.6 cm (6' 5) 07/17/2021 6:43 AM CDT Body Mass Index 30.31 07/17/2021 6:43 AM CDT Plan of Treatment Health Maintenance Due Date Last Done Comments ADVANCE CARE PLANNING 1945 ANNUAL REVIEW OF HM ORDERS 1947 LUNG CANCER SCREENING 1997 RSV VACCINE ( & 60+) (1 - 1-dose 60+ series) 2007 FALL RISK ASSESSMENT 2012 MEDICARE ANNUAL WELLNESS VISIT 2012 DTAP/TDAP/TD IMMUNIZATION (2 - Td or Tdap) 02/21/2021 02/21/2011 LIPID 07/02/2022 07/02/2021, 02/20/2005 COVID-19 Vaccine (2022- season) 2022 04/11/2021, 07/04/2020, 06/13/2020 INFLUENZA VACCINE (#1) 2022 , 02/04/2020, 03/01/2019, Additional history exists PHQ-2 (once per calendar year) 2023 GLUCOSE 07/18/2024 07/18/2021, 06/21, 07/02/2021, Additional history exists HEPATITIS C SCREENING Completed 02/20/2005 Pneumococcal Vaccine: 65+ Years Completed 05/09/2015, 07/13/2012 ZOSTER IMMUNIZATION Completed 01/29/2019, 11/24/2018, 02/21/2011 HPV IMMUNIZATION Aged Out No longer e ligible based on patient's age to complete this topic IPV IMMUNIZATION Aged Out No longer e ligible based on patient's age to complete this topic MENINGITIS IMMUNIZATION Aged Out No l onger eligible based on patient's age to complete this topic RSV MONOCLONAL ANTIBODY Aged Out No l onger eligible based on patient's age to complete this topic Medical Devices Implanted Type Area [employer] Math Teacher Device Identifier Shelf Expiration Date Model / Serial / Lot Cement Surgical Full Dose 6191-1-001 Implanted:Qty : 1 on 06/01/2015 Cement, Bone Right: Shoulder [employer] 10/29/2017 6191-1-001 / / [id number] Suture Fiberwire #2 Ct-1 [id number] Implanted:Qty : 4 on 06/01/2015 Metallic Hardware/A nchor Right: Shoulder AR[employer] 03/01/2020 [id number] / / [id number] Suture Fiberwire #5 [id number] Implanted:Qty : 1 on 06/01/2015 Metallic Hardware/A nchor Right: Shoulder [employer] 09/30/2019 [id number] / / [id number] Imp Spacer Medt Elevate X-Rea 23x8mm Expandable Med [id number] Implanted:Qty : 1 on 06/05/2020 Metallic Hardware/A nchor N/A: Spine Lumbar [employer] 12/16/2027 [id number] / / [id number] Imp Spacer Medt Elevate X-Rea 23x8mm Expandable Med [id number] Implanted:Qty : 1 on 06/05/2020 Metallic Hardware/A nchor N/A: Spine Lumbar [employer] [id number] / / NA Imp Scr Medt Tsrh 3dx Og Thin 6.5x45mm Ti [id number] Implanted:Qty : 4 on 06/05/2020 Metallic Hardware/A nchor N/A: Spine Lumbar [employer] [id number] / / NA Imp Scr Set Medt Tsrh 3dx Flush Break [id number] Implanted:Qty : 4 on 06/05/2020 Metallic Hardware/A nchor N/A: Spine Lumbar [employer] [id number] / / NA Imp Connector Medt Tsrh 3dx Small [id number] Implanted:Qty : 4 on 06/05/2020 Metallic Hardware/A nchor N/A: Spine Lumbar [employer] [id number] / / NA Imp Johnathan Medt [facility] Prebent 04.0cm [id number] Implanted:Qty : 2 on 06/05/2020 Metallic Hardware/A nchor N/A: Spine Lumbar [employer] [id number] / / NA Imp Scr Central Biomet Rev Shldr 6.5x30mm [id number] - [id number] Implanted:Qty : 1 on 07/17/2021 by Ramy De La Cruz MD at [facility] Metallic Hardware/A nchor Left: Shoulder SUE [employer] [id number] 05/10/2031 [id number] / / [id number] [place] Sut 2.9mm 2 Juggerknot Mxbrd 2 Ld Tpr Ndl - [id number] Implanted:Qty : 1 on 07/17/2021 by Ramy De La Cruz MD at [facility] Metallic Hardware/A nchor Left: Shoulder [employer] [id number] 10/05/2025 [id number] / / [id number] [place] Sut 2.9mm 2 Juggerknot Mxbrd 2 Ld Tpr Ndl - [id number] Implanted:Qty : 1 on 07/17/2021 by Ramy De La Cruz MD at [facility] Metallic Hardware/A nchor Left: Shoulder S[employer] [id number] 09/30/2025 [id number] / / [id number] Imp Scr Locking Biom Rev Shldr 3.5 Hex 4.32x36eb 240882 - [id number] Implanted:Qty : 1 on 07/17/2021 by Ramy De La Cruz MD at [facility] Metallic Hardware/A nchor Left: Shoulder [employer] [id number] 05/22/2031 [id number] / / [id number] Imp Scr Locking Biom Rev Shldr 3.5 Hex 4.64z16hg 297266 - [id number] Implanted:Qty : 1 on 07/17/2021 by Ramy De La Cruz MD at [facility] Metallic Hardware/A nchor Left: Shoulder [employer] [id number] 12/07/2030 [id number] / / [id number] Stem Humeral Anatomic Std Ptc 5b - [id number] - [id number] Implanted:Qty : 1 on 06/01/2015 Total Joint Component/ Insert Right: Shoulder [employer] 04/25/2020 [id number] / [id number] / Glenoid Cortiloc Lg 50mm - [id number] - [id number] Implanted:Qty : 1 on 06/01/2015 Total Joint Component/ Insert Right: Shoulder [employer] 09/30/2019 [id number] / [id number] / Humeral Head Implanted:Qty : 1 on 06/01/2015 Total Joint Component/ Insert Right: Shoulder [employer] 05/22/2018 [id number] / [id number] / Imp Baseplate Mini Glenosphere Biom Rev Shldr 25mm [id number] - [id number] Implanted:Qty : 1 on 07/17/2021 by Ramy De La Cruz MD at [facility] Total Joint Component/ Insert Left: Shoulder [employer] [id number] 05/22/2031 [id number] / / [id number] Imp Glenosphere Biom Rev Shldr 36mm Std [id number] - [id number] Implanted:Qty : 1 on 07/17/2021 by Ramy De La Cruz MD at [facility] Total Joint Component/ Insert Left: Shoulder [employer] [id number] 06/23/2031 [id number] / / [id number] Imp Scr Locking Biom Rev Shldr 3.5 Hex 4.67o85rx 908759 - [id number] Implanted:Qty : 1 on 07/17/2021 by Ramy De La Cruz MD at [facility] Total Joint Component/ Insert Left: Shoulder [employer] [id number] 06/27/2031 [id number] / / [id number] Imp Scr Locking Biom Rev Shldr 3.5 Hex 4.72f14yf 723893 - [id number] Implanted:Qty : 1 on 07/17/2021 by Ramy De La Cruz MD at [facility] Total Joint Component/ Insert Left: Shoulder [employer] [id number] 06/27/2031 [id number] / / [id number] Imp Humeral Tray Zim Rvrs Shldr Std [id number] - [id number] Implanted:Qty : 1 on 07/17/2021 by Ramy De La Cruz MD at [facility] Total Joint Component/ Insert Left: Shoulder [employer] [id number] 01/02/2031 [id number] / / [id number] Imp Bearing Humeral Zim 36mm Std Prlng [id number] - [id number] Implanted:Qty : 1 on 07/17/2021 by Ramy De La Cruz MD at [facility] Total Joint Component/ Insert Left: Shoulder [employer] [id number] 01/29/2026 [id number] / / [id number] Imp Stem Mini Humeral Biom Shldr 14mm [id number] - [id number] Implanted:Qty : 1 on 07/17/2021 by Ramy De La Cruz MD at [facility] Total Joint Component/ Insert Left: Shoulder [employer] 01/21/2031 [id number] / / [id number] Advance Directives For more information, please contact: [phone] Latest Code Status on File Code Status Date Activated Date Inactivated Comments Full Code 07/17/2021 11:29 AM 07/18/2021 12:49 PM All basic and advanced life-sustaining interventions are performed as appropriate Question Answer Comments Code status determined by: Unable to discuss and no AD/POLST on file; continue PREVIOUSLY ORDERED code status Care Teams Suspension Cord Tier Relationship Specialty Start Date End Date Srinivasan Loyd PCP - General Family Practice 07/24/16
--- OUTSIDE RECORDS SUMMARY | 2023-07-28 16:47 | XMS_ITS | Encounter Summary ---
Author Name Unknown Organization [facility] Address [address] [place] [address]. [place] [address] Care Team Providers Care Promotions Officer Name Role Phone Srinivasan Loyd Primary Care Provider Unavailabl e Encounter Details Date Type Department Care Team (Late st Contact Info) Description 06/21/2021 Documentation Only INTERFACED REPORT Unknown, Provider Social History Tobacco Use Types Packs/Day Years Used Date Smoking Tobacco: Former Cigarettes Q uit: 05/31/1969 Smokeless Tobacco: Never Alcohol Use Standard Drinks/Week Comments No 0 (1 standard drink = 0.6 oz pur e alcohol) Sex and Gender Information Value Date Recorded Sex Assigned at Not on file Gender Identity Not on file Sexual Orientation Not on file documented as of this encounter Plan of Treatment Not on file documented as of this encounter Visit Diagnoses Not on filedocumented in this encounter Care Teams Promotions Officer Relationship Specialty Start Date End Date Srinivasan Loyd PCP - General Family Practice 07/24/16 documented as of this encounter
--- OUTSIDE RECORDS SUMMARY | 2023-07-28 16:47 | XMS_ITS | Referral Summary ---
Author Name Unknown Organization [facility] Address [address] [place] [address]. [place] [address] Care Team Providers Care Belt Molder Name Role Phone Srinivasan Loyd Primary Care [...] 500 mg by mouth daily 0 Active [place]-3 Fatty Acids (FISH OIL) 1200 MG capsule Take 1,200 mg by mouth daily 0 Active fluticasone (FLONASE) 50 MCG/ACT nasal spray [place] 2 sprays into both nostrils daily as needed for rhinitis or allergies 0 Active azelastine (ASTELIN) 0.1 % nasal spray [place] 1 spray into both nostrils daily as [...] 07/17/2021 6:43 AM CDT Plan of Treatment Not on file Medical Devices Implanted Type Area Wool Spotter Device Identifier Shelf Expiration Date Model / Serial / Lot Cement Surgical Full Dose 6191-1-001 Implanted:Qty : 1 on 06/01/2015 Cement, Bone Right: Shoulder [employer] 10/29/2017 6191-1-001 / / [id number] Suture Fiberwire #2 Ct-1 [id number] Implanted:Qty : 4 on 06/01/2015 Metallic Hardware/A nchor Right: Shoulder [employer] 03/01/2020 [id number] / / [id number] Suture Fiberwire #5 [id number] Implanted:Qty : 1 on 06/01/2015 Metallic Hardware/A nchor Right: Shoulder [employer] 09/30/2019 [id number]-[id number] / / [id number] Imp Spacer Medt Elevate X-Rea 23x8mm Expandable Med [id number] Implanted:Qty : 1 on 06/05/2020 Metallic Hardware/A nchor N/A: Spine Lumbar [employer] 12/16/2027 [id number] / / [id number] Imp Spacer Medt Elevate X-Rea 23x8mm Expandable Med [id number] Implanted:Qty : 1 on 06/05/2020 Metallic Hardware/A nchor N/A: Spine Lumbar [employer] [id number] / / NA Imp Scr Medt Tsrh 3dx Og Thin 6.5x45mm Ti [id number] Implanted:Qty : 4 on 06/05/2020 Metallic Hardware/A nchor N/A: Spine Lumbar [employer] [id number] / / NA Imp Scr Set Medt Tsrh 3dx Flush Break [id number] Implanted:Qty : 4 on 06/05/2020 Metallic Hardware/A nchor N/A: Spine Lumbar [employer] [id number] / / NA Imp Connector Medt Tsrh 3dx Small [id number] Implanted:Qty : 4 on 06/05/2020 Metallic Hardware/A nchor N/A: Spine Lumbar [employer] [id number] / / NA Imp Johnathan Medt Tsrh Prebent 04.0cm [id number] Implanted:Qty : 2 on 06/05/2020 Metallic Hardware/A nchor N/A: Spine Lumbar [employer] [id number] / / NA Imp Scr Central Biomet Rev Shldr 6.5x30mm [id number] - [id number] Implanted:Qty : 1 on 07/17/2021 by Ramy De La Cruz MD at [facility] Metallic Hardware/A nchor Left: Shoulder [employer] [id number] 05/10/2031 [id number] / / [id number] [place] Sut 2.9mm 2 Juggerknot Mxbrd 2 Ld Tpr Ndl - [id number] Implanted:Qty : 1 on 07/17/2021 by Ramy De La Cruz MD at [facility] Metallic Hardware/A nchor Left: Shoulder [employer] [id number] 10/05/2025 [id number] / / [id number] [place] Sut 2.9mm 2 Juggerknot Mxbrd 2 Ld Tpr Ndl - [id number] Implanted:Qty : 1 on 07/17/2021 by Ramy De La Cruz MD at [facility] Metallic Hardware/A nchor Left: Shoulder [employer] [id number] 09/30/2025 [id number] / / [id number] Imp Scr Locking Biom Rev Shldr 3.5 Hex 4.47q32uo 321174 - [id number] Implanted:Qty : 1 on 07/17/2021 by Ramy De La Cruz MD at [facility] Metallic Hardware/A nchor Left: Shoulder [employer] [id number] 05/22/2031 [id number] / / [id number] Imp Scr Locking Biom Rev Shldr 3.5 Hex 4.77b82yk [id number] - [id number] Implanted:Qty : 1 on 07/17/2021 by Ramy De La Cruz MD at [facility] Metallic Hardware/A nchor Left: Shoulder [employer] [id number] 12/07/2030 [id number] / / [id number] Stem Humeral Anatomic Std Ptc 5b - [id number] - [id number] Implanted:Qty : 1 on 06/01/2015 Total Joint Component/ Insert Right: Shoulder [employer] 04/25/2020 [id number] / [id number] / Glenoid Cortiloc Lg 50mm - [id number] - [id number] Implanted:Qty : 1 on 06/01/2015 Total Joint Component/ Insert Right: Shoulder [employer] 09/30/2019 [id number] / [id number] / Humeral Head Implanted:Qty : 1 on 06/01/2015 Total Joint Component/ Insert Right: Shoulder [employer] 05/22/2018 [id number] / [id number] / Imp Baseplate Mini Glenosphere Biom Rev Shldr 25mm [id number] - [id number] Implanted:Qty : 1 on 07/17/2021 by Ramy De La Cruz MD at [facility] Total Joint Component/ Insert Left: Shoulder [employer] [id number] 05/22/2031 [id number] / / [id number] Imp Glenosphere Biom Rev Shldr 36mm Std 917472 - [id number] Implanted:Qty : 1 on 07/17/2021 by Ramy De La Cruz MD at [facility] Total Joint Component/ Insert Left: Shoulder [employer] [id number] 06/23/2031 [id number] / / [id number] Imp Scr Locking Biom Rev Shldr 3.5 Hex 4.90w68fi 308691 - [id number] Implanted:Qty : 1 on 07/17/2021 by Ramy De La Cruz MD at [facility] Total Joint Component/ Insert Left: Shoulder [employer] [id number] 06/27/2031 [id number] / / [id number] Imp Scr Locking Biom Rev Shldr 3.5 Hex 4.20i49fa 403896 - [id number] Implanted:Qty : 1 on 07/17/2021 by Ramy De La Cruz MD at [facility] Total Joint Component/ Insert Left: Shoulder [employer] [id number] 06/27/2031 [id number] / / [id number] Imp Humeral Tray Zim Rvrs Shldr Std [id number] - [id number] Implanted:Qty : 1 on 07/17/2021 by Ramy De La Cruz MD at [facility] Total Joint Component/ Insert Left: Shoulder [employer] [id number] 01/02/2031 [id number] / / [id number] Imp Bearing Humeral Zim 36mm Std Prlng [id number] - [id number] Implanted:Qty : 1 on 07/17/2021 by Ramy De La Cruz MD at [facility] Total Joint Component/ Insert Left: Shoulder [employer] [id number] 01/29/2026 [id number] / / [id number] Imp Stem Mini Humeral Biom Shldr 14mm 394716 - [id number] Implanted:Qty : 1 on 07/17/2021 by Ramy De La Cruz MD at [facility] Total Joint Component/ Insert Left: Shoulder [employer] 01/21/2031 [id number] / / [id number] Advance Directives For more information, please contact: [phone] Latest Code Status on File Code Status Date Activated Date Inactivated Comments Full Code 07/17/2021 11:29 AM 07/18/2021 12:49 PM All basic and advanced life-sustaining interventions are performed as appropriate Question Answer Comments Code status determined by: Unable to discuss and no AD/POLST on file; continue PREVIOUSLY ORDERED code status Care Teams Belt Molder Relationship Specialty Start Date End Date Srinivasan Loyd PCP - General Family Practice 07/24/16
--- OUTSIDE RECORDS SUMMARY | 2023-07-28 16:48 | XMS_ITS | Continuity of Care Document ---
Author Name Unknown Address [address] [place] [address] Phone [phone] Organization [facility] Address [address] [place] [address] Care Team Providers Care Construction Equipment Mechanic Helper Name Role Phone SUPRIYADANNIE OLLIE Primary Care Provider Assessment No assessment recorded. Plan of Treatment Reminders Order Date Submit Date Provider Last Modified By Organization Details Last Modified Time Details Appointments None recorded. Lab urinalysi s, dipstick 2023 024 deni [facility], [address], [place], [address], 10:57:04 culture, urine 2023 024 [facility], [address], [place], [address], 10:42:42 Referral None recorded. Procedures None recorded. Surgeries None recorded. Imaging None recorded. Medication Orders None recorded. Patient TargetsNo targets recorded. Patient InstructionsNo instructions recorded. Reason for Referral None Reported. Results Created Date Observation Date Name Description Value Unit Range Abnormal Flag LastModifiedBy Organization Detail LastModifiedTime 05/13/1905/13/2023 urina lysis , dipst ick Nitrates-Sta tus negati ve Not Available [facility] [address], [place], [address], 05/13/2023 10:54:58 05/13/19 24 05/13/2023 urina lysis , dipst ick Blood-Status Trace Not Available [facility] [address], [place], [address], 05/13/2023 10:54:58 05/13/19 24 05/13/2023 urina lysis , dipst ick Leuko-Status Modera te Not Available [facility] [address], [place], [address], 05/13/2023 10:54:58 05/13/19 24 05/13/2023 urina lysis , dipst ick Specimen Type Voided Not Available [facility] [address], [place], [address], 05/13/2023 10:54:58 Result Notes None recorded. Problems Name Status Onset Date Resolution Date Notes Provider Name and Address Organization Details Recorded Time Benign prostatic hyperplasia with outflow obstruction Active 11/30/19 Sukumar Alejandro MD [address] [place] [address], [place], [address], [facility] 11/29/2022 11:42:45 Problem Notes None recorded. Procedures Surgical History Date Name Laterality Status Provider Name and Address Organization Details Recorded Time 05/16/19 24 Bladder Scan completed Laura roper [facility] 05/16/2023 12:17:22 05/13/19 24 Urine Culture completed Chelsey roper [facility] 05/13/2023 10:54:28 05/13/19 24 Urinalysis completed Chelsey roper [facility] 05/13/2023 10:54:45 05/13/19 24 Bladder Scan completed Chelsey roper [facility] 05/13/2023 10:54:54 04/15/20 23 Fill and Pull/Voiding Trial/TOV completed Chelsey roper [facility] 04/15/2023 11:41:50 04/09/20 Bladder Irrigation completed Josiah roper [facility] 04/10/2023 11:08:06 04/09/20 23 Fill and Pull/Voiding Trial/TOV completed Josiah roper, [facility] 04/10/2023 11:08:19 01/23/20 23 TRUS- Volume size only completed Sukumar Alejandro MD [address] [place] [address],[address], [place], [address], [facility] 01/22/2023 14:25:57 01/23/20 23 CystoscopyMale completed Sukumar Alejandro MD [address] [place] [address],[address], [place], [address], [facility] 01/22/2023 14:24:33 11/30/19 23 Bladder Scan completed Sukumar Alejandro MD [address] [place] [address],[address], [place], [address], [facility] 11/29/2022 11:42:04 07/05/19 22 Bladder Scan completed Debbie roper [facility] 07/04/2021 14:26:27 04/05/20 20 Bladder Scan completed Sukumar Alejandro MD [address] [place] [address],[address], [place], [address], [facility] 04/05/2020 11:17:03 04/05/20 20 Blood Draw/JIG FITTER/PSA RESULTS completed Sukumar Alejandro MD [address] [place] [address],[address], [place], [address], [facility] 04/05/2020 11:17:25 Imaging Results None recorded. Procedure Notes None recorded. Medical Equipment None Reported. 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 07/04/2021 Information not available 07/04/2021 Do You Or Have You Ever Used Any Other Forms Of Tobacco Or Nicotine? No Information not available 07/04/2021 Sex: Male Functional Status None recorded. Mental Status None recorded. Family History Nothing Reported. Medical History Condition Response Heart Disease Y High Blood Pressure Y High Cholesterol Y Immunizations Vaccine Type Date Status Provider Name and Address Organization Details Recorded Time Influenza, injectable, MDCK, preservative free, quadrivalent 02/03/2017 completed Laura Edward null, [facility] 05/16/2023 12:13:04 zoster recombinant 11/24/2018 completed Laura D chip null, [facility] 05/16/2023 12:13:04 zoster recombinant 01/29/2019 completed Laura D chip null, [facility] 05/16/2023 12:13:04 influenza, high-dose, quadrivalent 02/04/2020 completed Laura Edward null, [facility] 05/16/2023 12:13:04 Influenza vaccine, quadrivalent, adjuvanted 01/04/2021 completed Laura Edward null, [facility] 05/16/2023 12:13:04 COVID-19, mRNA, LNP-S, PF, 30 mcg/0.3 mL dose 06/13/2020 completed Laura Edward null, [facility] 05/16/2023 12:13:04 COVID-19, mRNA, LNP-S, PF, 30 mcg/0.3 mL dose 07/04/2020 completed Laura Edward null, [facility] 05/16/2023 12:13:04 COVID-19, mRNA, LNP-S, PF, 30 mcg/0.3 mL dose 04/11/2021 completed Laura Edward null, [facility] 05/16/2023 12:13:04 pneumococcal polysaccharide PPV23 07/13/2012 completed Laura Edward null, [facility] 05/16/2023 12:13:04 Tdap 02/21/2011 completed Laura Edward null, [facility] 05/16/2023 12:13:04 zoster live 02/21/2011 completed Laura Edward null, [facility] 05/16/2023 12:13:04 Influenza, high dose seasonal 12/23/2013 completed Laura Edward null, [facility] 05/16/2023 12:13:04 Influenza, high dose seasonal 12/27/2014 completed Laura Edward null, [facility] 05/16/2023 12:13:04 Influenza, high dose seasonal 01/03/2016 completed Laura Edward null, [facility] 05/16/2023 12:13:04 Influenza, high dose seasonal 01/13/2018 completed Laura Edward null, [facility] 05/16/2023 12:13:04 Influenza, high dose seasonal 02/21/2014 completed Laura Edward null, [facility] 05/16/2023 12:13:04 Influenza, high dose seasonal 03/01/2019 completed Laura Edward null, [facility] 05/16/2023 12:13:04 Influenza, seasonal, injectable 01/20/2013 completed Laura Edward null, [facility] 05/16/2023 12:13:05 Influenza, seasonal, injectable 02/11/2012 completed Laura Edward null, [facility] 05/16/2023 12:13:05 Influenza, seasonal, injectable, preservative free 02/11/2011 completed Laura Edward null, [facility] 05/16/2023 12:13:05 Pneumococcal conjugate PCV 13 05/09/2015 completed Laura Edward null, [facility] 05/16/2023 12:13:04 Past Encounters Encounter ID Performer Location Encounter Start Date Encounter Closed Date Diagnosis/Indication Diagnosis SNOMED-CT Code [id number] MD [facility] [address] [place] [id number] 04/15/2023 10:59:21 04/25/2023 10:58:50 Benign prostatic hyperplasia with outflow obstruction [id number] MD [facility] [address] [place] [id number] 05/13/2023 10:14:25 05/14/2023 15:20:30 Benign prostatic hyperplasia with outflow obstruction [id number] Health Concerns Section Related Observation LastModified by Organization Detai ls LastModified Time None Recorded Concern Status LastModified by Organization Details LastModified Time None Recorded Payers Encounter Date Sequence Insurance Name Policy Number Policy Mccallum Covered Member ID Mccallum Member ID Guarantor Name 05/13/2023 1 [employer] - DOS ON OR AFTER 19 (MEDICARE REPLACEMENT/ ADVANTAGE - HMO) [id number] Stiven Randhawa [id number] Stiven Randhawa Notes Date Note Type Note Provider Name and Address Organization Details Recorded Time 05/13/2023 text/html HPI Notes: Pt presents to clinic for UA/UC and PVR as advised by triage - no documentation. Pt c/o lower abdominal pain, dark odorous urine and prostate pain Sukumar Alejandro MD [address] [facility],[address], [place], [address], [facility] 05/14/2023 10:03:15
--- OUTSIDE RECORDS SUMMARY | 2023-07-28 16:48 | XMS_ITS | Continuity of Care Document ---
Author Name Unknown Address [address] [place] [id number] Phone [phone] Organization [facility], [facility] Address [address] [place] [address] Care Team Providers Care Manager Mba Name Role Phone SUPRIYADANNIE OLLIE Primary Care Provider [phone] Assessment Encounter Date Assessment Date Assessment LastModified by Organization Details LastModified Time 05/16/2023 05/16/2023 77 Y/O MALE, HX BPH, S/P AQUA THERAPY OF THE PROSTATE . DOING WELL. GOOD FLOW, DRY, PVR 8CC. SATISFIED. PLAN RTC 2 MO PVR, U/A. Not available 05/16/2023 16:53:25 Plan of Treatment Reminders Order Date Submit Date Provider Last Modified By Organization Details Last Modified Time Details Appointments None recorded. Lab urinalysis , dipstick 2023 024 vdrey [facility], [address], [place], [address], 12:18:46 Referral None recorded. Procedures None recorded. Surgeries None recorded. Imaging None recorded. Medication Orders None recorded. Patient TargetsNo targets recorded. Patient InstructionsNo instructions recorded. Reason for Referral None Reported. Results Created Date Observation Date Name Description Value Unit Range Abnormal Flag LastModifiedBy Organization Detail LastModifiedTime 05/16/1905/16/2023 urina lysis , dipst ick Color-Status Yellow Not Available [facility] [address], [place], [address], 05/16/2023 12:17:28 05/16/19 24 05/16/2023 urina lysis , dipst ick Clarity-Stat us Clear Not Available [facility] [address], [place], [address], 05/16/2023 12:17:28 05/16/19 24 05/16/2023 urina lysis , dipst ick Nitrates-Sta tus negati ve Not Available [facility] [address], [place], [address], 05/16/2023 12:17:28 05/16/19 24 05/16/2023 urina lysis , dipst ick Blood-Status Trace Not Available [facility] [address], [place], [address], 05/16/2023 12:17:28 05/16/19 24 05/16/2023 urina lysis , dipst ick Leuko-Status Small Not Available [facility] [address], [place], [address], 05/16/2023 12:17:28 05/16/19 24 05/16/2023 urina lysis , dipst ick Specimen Type Voided Not Available [facility] [address], [place], [address], 05/16/2023 12:17:28 05/16/19 24 05/16/2023 urina lysis , dipst ick Performed by [facility] Not Available [facility] [address], [place], [address], 05/16/2023 12:17:28 Result Notes None recorded. 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 Procedures Surgical History Date Name Laterality Status Provider Name and Address Organization Details Recorded Time 05/16/19 24 Bladder Scan completed Laura Leon null, [facility] 05/16/2023 12:17:22 05/13/19 24 Urine Culture completed Chelsey roper, [facility] 05/13/2023 10:54:28 05/13/19 24 Urinalysis completed Chelsey roper, [facility] 05/13/2023 10:54:45 05/13/19 24 Bladder Scan completed Chelsey Kiran null, [facility] 05/13/2023 10:54:54 04/15/20 23 Fill and Pull/Voiding Trial/TOV completed Chelsey roper, [facility] 04/15/2023 11:41:50 04/09/20 23 Bladder Irrigation completed Josiah roper, [facility] 04/10/2023 11:08:06 04/09/20 23 Fill and Pull/Voiding Trial/TOV completed Josiah Parada null, [facility] 04/10/2023 11:08:19 01/23/20 23 TRUS- Volume size only completed Sukumar Alejandro MD [address] [place] [address],[address], [address], [facility] 01/22/2023 14:25:57 01/23/20 23 CystoscopyMale completed Sukumar Alejandro MD [address] [place] [address],[address], [address], [facility] 01/22/2023 14:24:33 11/30/19 23 Bladder Scan completed Sukumar Alejandro MD [address] [place] [address],[address] [place] [address], [address], [facility] 11/29/2022 11:42:04 07/05/19 22 Bladder Scan completed Debbie Sawyer null, [facility] 07/04/2021 14:26:27 04/05/20 20 Bladder Scan completed Sukumar Alejandro MD [address] [place] [address],[address] [place] [address], [address], [facility] 04/05/2020 11:17:03 04/05/20 20 Blood Draw/LOOPING INSPECTOR/PSA RESULTS completed Sukumar Alejandro MD [address] [facility],[address], [place], [address], [facility] 04/05/2020 11:17:25 Imaging Results None recorded. Procedure Notes None recorded. Medical Equipment None Reported. Allergies Allergen ID Allergen Name Allergen Category Reaction Reaction Severity Criticality Documentation Date Start Date Code Code System Note Provider Name and Address Organization Details Recorded Time [id number] sulfameth oxazole / trimethop rim medicatio n Not available Not available Not available 10/07/20192017 85623 RxNorm React ion: Skin React ion Not Available 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 Not Available Not Available No t [...] Updated DateTime 05/16/2023 195.58 cm 30.4 kg/m2 799361.65 g Laura roper [facility] 05/16/2023 12:12:50 Social History Question Answer Notes LastModified by Organizat ion Details LastModified Time Tobacco Smoking Status Former Smoker Josiah Karma roper [facility] 04/05/2020 11:03:17 What Was The Date Of [...] preservative free, quadrivalent 02/03/2017 completed Laura roper [facility] 05/16/2023 12:13:04 zoster recombinant 11/24/2018 completed Laura roper [facility] 05/16/2023 12:13:04 zoster recombinant 01/29/2019 completed Laura roper [facility] 05/16/2023 12:13:04 influenza, high-dose, quadrivalent 02/04/2020 completed Laura Edward null, [facility] 05/16/2023 12:13:04 Influenza vaccine, quadrivalent, adjuvanted 01/04/2021 completed Laura Edward null, [facility] 05/16/2023 12:13:04 COVID-19, mRNA, LNP-S, PF, 30 mcg/0.3 mL dose 06/13/2020 completed Laura Edward null, [facility] 05/16/2023 12:13:04 COVID-19, mRNA, LNP-S, PF, 30 mcg/0.3 mL dose 07/04/2020 completed Laura Edward null, [facility] 05/16/2023 12:13:04 COVID-19, mRNA, LNP-S, PF, 30 mcg/0.3 mL dose 04/11/2021 completed Laura Edward null, [facility] 05/16/2023 12:13:04 pneumococcal polysaccharide PPV23 07/13/2012 completed Laura Edward null, [facility] 05/16/2023 12:13:04 Tdap 02/21/2011 completed Laura Edward null, [facility] 05/16/2023 12:13:04 zoster live 02/21/2011 completed Laura Edward null, [facility] 05/16/2023 12:13:04 Influenza, high dose seasonal 12/23/2013 completed Laura Edward null, [facility] 05/16/2023 12:13:04 Influenza, high dose seasonal 12/27/2014 completed Laura Edward null, [facility] 05/16/2023 12:13:04 Influenza, high dose seasonal 01/03/2016 completed Laura Edward null, [facility] 05/16/2023 12:13:04 Influenza, high dose seasonal 01/13/2018 completed Laura Edward null, [facility] 05/16/2023 12:13:04 Influenza, high dose seasonal 02/21/2014 completed Laura Edward null, [facility] 05/16/2023 12:13:04 Influenza, high dose seasonal 03/01/2019 completed Laura Edward null, [facility] 05/16/2023 12:13:04 Influenza, seasonal, injectable 01/20/2013 completed Laura Edward null, [facility] 05/16/2023 12:13:05 Influenza, seasonal, injectable 02/11/2012 completed Laura Edward null, [facility] 05/16/2023 12:13:05 Influenza, seasonal, injectable, preservative free 02/11/2011 completed Laura Edward null, [facility] 05/16/2023 12:13:05 Pneumococcal conjugate PCV 13 05/09/2015 completed Laura Edward null, [facility] 05/16/2023 12:13:04 Past Encounters Encounter ID Performer Location Encounter Start Date Encounter Closed Date Diagnosis/Indication Diagnosis SNOMED-CT Code [id number] Sukumar Alejandro MD [facility] [address] [place] [address] 04/15/2023 10:59:21 04/25/2023 10:58:50 Benign prostatic hyperplasia with outflow obstruction [id number] Sukumar Alejandro MD [facility] [address] [place] [address] 05/13/2023 10:14:25 05/14/2023 15:20:30 Benign prostatic hyperplasia with outflow obstruction [id number] Sukumar Alejandro MD [facility] [address] [place] [address] 05/16/2023 11:52:49 05/19/2023 12:13:53 Benign prostatic hyperplasia with outflow obstruction [id number] Health Concerns Section Related Observation LastModified by Organization Detai ls LastModified Time None Recorded Concern Status LastModified by Organization Details LastModified Time None Recorded Payers Encounter Date Sequence Insurance Name Policy Number Policy Mccallum Covered Member ID Mccallum Member ID Guarantor Name 05/16/2023 1 [employer] - DOS ON OR AFTER 19 (MEDICARE REPLACEMENT/ ADVANTAGE - HMO) [id number] Stiven Randhawa [id number] Stiven Randhawa Notes Date Note Type Note Provider Name and Address Organization Details Recorded Time 05/16/2023 text/html HPI Notes: 77 Y/O MALE , HX BPH, S/P AQUA THERAPY OF THE PROSTATE, 5 WKS AGO. OVERALL DOING WELL. PVR8CC, U/A POST TURP, U/C PREV NEG. Sukumar Alejandro MD [address] [facility],[place] [address], [place], [address], [facility] 05/16/2023 16:53:49
[2023-07-28 17:09] LABS: Slide Review Reflex No
[2023-07-28 17:11] LABS: Chloride* 101 mmol/L (96-114); Potassium* 4.1 mmol/L (3.6-5.1); Sodium* 136 mmol/L (135-149)
[2023-07-28 17:14] LABS: Anion Gap 8 mEq/L (7-15); Blood Urea Nitrogen* 21 mg/dL (7-30); Carbon Dioxide* 27 mmol/L (20-32); Creatinine* 0.8 mg/dL (0.5-1.5); Estimated Glomerular Filt Rate 92 ml/min; Glucose* 135 mg/dL (60-115)
[2023-07-28 17:15] LABS: Calcium* 9.4 mg/dL (8.4-10.6)
[2023-07-28 17:31] LABS: Procalcitonin* 0.97 ng/mL (<0.50)
[2023-07-28] MEDS: DOXYCYCLINE HYCLATE 100 MG PO (19:21)
[2023-07-31 14:22] LABS: Lyme ELISA Reflex 0.55 IV (<=0.90)
== END 2023-07-28 19:21 | disposition home or self-care (01) ==
PROVIDERS: Family Medicine; Emergency Provider Emergency Medicine Emergency Medical Services; PCP Family Medicine
DX: R50.9 Fever, unspecified (principal)
CPT/HCPCS: 36415; 80048; 81001; 83605; 84145; 85025; 86618; 86757; 87040; 87468; 87484; 87631; 96365; 96366; 96375; 99284; A9270; J0696; J1885; J7030